=== PATIENT | female | born 1965 | race Caucasian/White ===

== ENCOUNTER → 2022-11-13 08:47 | Outpatient (BNVA) | payer BC, SELFPAY | PROVIDERS: PCP Family Medicine; Visit Provider Student in an Organized Health Care Education/Training Program | DX: Z13.89 Encounter for screening for other disorder (principal) ==

== ENCOUNTER 2022-11-13 09:48 | Outpatient (REF) | payer BC, SELFPAY ==
[2022-11-13 10:35] LABS: MANUAL DIFF FLAG NO
[2022-11-13 10:40] LABS: Basophils Absolute Auto 0.1 X10*3/uL (0.0-0.2); Eosinophils Absolute Auto 0.6 X10*3/uL (0.0-0.4); Eosinophils Percent Auto 11.2 % (0-4); Hematocrit 40.9 % (37.0-47.0); Hemoglobin 13.9 g/dl (12.0-16.0); Imm Gran Abs Auto 0.02 X10*3/uL (0.00-0.03); Imm Gran Pct Auto 0.4 % (0.0-0.4); Lymphocytes Absolute Auto 1.1 X10*3/uL (1.2-4.9); Mean Corpuscular Hemoglobin 31.2 pg (27.0-33.0); Mean Corpuscular Volume 91.7 fL (80.0-98.0); Mean Platelet Volume 8.4 fL (9.4-12.3); Monocytes Absolute Auto 0.3 X10*3/uL (0.1-1.2); Monocytes Percent Auto 5.9 % (2-11); Neutrophils Percent Auto 59.5 % (45-73); Platelet Count 256 X10*3/uL (160-400); Red Blood Count 4.46 X10*6/uL (4.20-5.50); Red Cell Distribution Width 13.5 % (11.0-16.0); White Blood Count 5.1 X10*3/uL (4.8-10.8)
[2022-11-13 11:30] LABS: Alanine Aminotransferase 25 U/L (0-31); Albumin Level 4.2 g/dL (3.5-5.0); Alkaline Phosphatase 62 U/L (39-117); Anion Gap 12 (12-20); Aspartate Amino Transferase 19 U/L (5-31); Bilirubin Total 0.8 mg/dL (0.0-1.0); Blood Urea Nitrogen 13 mg/dL (9-16); C Reactive Protein 0.49 mg/dL (< or = 0.50); Calcium 9.2 mg/dL (8.4-10.2); Carbon Dioxide 27 mmol/L (22-29); Chloride 105 mmol/L (96-108); Estimated Glomerular Filt Rate > 60; Glucose Random 99 mg/dL (60-115); Potassium 4.1 mmol/L (3.3-5.1); Rheumatoid Factor 15.1 IU/mL (<15.0); Sodium 140 mmol/L (135-145); Total Protein 7.6 g/dL (6.5-8.0)
[2022-11-13 11:40] LABS: HBS Num1 0.22 mIU/mL (0-7.99); HBc Num1 0.13 S/CO (0.00-0.79); HBsAGNum1 0.36 S/CO (0.00-0.99); Hepatitis A Antibody IgM 0.24 Index (0-0.79); Hepatitis B Core Antibody Nonreactive (Nonreactive); Hepatitis B Surface Antigen Negative (Negative); ~HepC Num1 0.28 S/CO (0.00-0.79); ~Hepatitis A Antibody IgM Nonreactive (Nonreactive); ~Hepatitis B Surface Antibody NONREACTIVE (Nonreactive); ~Hepatitis C Antibody Nonreactive (Nonreactive)
[2022-11-15 11:09] LABS: Cyclic Citrullinated Peptide 155 UNITS
== END 2022-11-13 09:49 | disposition home or self-care (01) ==
LOC: HO.10HDL 09:48
PROVIDERS: Visit Provider Student in an Organized Health Care Education/Training Program
DX: M06.9 Rheumatoid arthritis, unspecified (principal); Z11.59 Encounter for screening for other viral diseases; Z11.7 Encounter for testing for latent tuberculosis infection
CPT/HCPCS: 36415; 80053; 85025; 86140; 86200; 86431; 86704; 86706; 86709; 86803; 87340

== ENCOUNTER 2023-06-11 10:11 | Outpatient (AMB) | payer BC, SELFPAY ==
[2023-06-11 10:16] VITALS: BP 140/82; PULSE 62; TEMP 36.7; O2SAT 98; BMI 47.7
--- NOTE | 2023-06-11 10:16 | MHC.OFFVIS ---
Intake Vital Signs 06/11/23 10:16 Height 5 ft Weight 244 lb 4.355 oz BMI 47.7 BP 140/82 H Blood Pressure Location Rt brachial Position Sitting Pulse 62 Pulse Source Pulse Oximeter Temp 98.1 F Temp Source Skin Pulse Oximetry (%) 98 Intake Visit Reasons: RA Intake Note: Pt seen today for RA follow up. Road Design Draftsperson Required: No Accompanied by: Self / Same As Patient Allergies Seasonal Allergies Allergy (Verified 06/11/23 10:17) Itchy Eyes Medication List - Last Reconciled 06/11/23 by Roberto Bojorquez MD adalimumab (Humira) 40 mg (0.8 mL) subcut Q2W ferrous sulfate 325 mg PO DAILY hydrochlorothiazide 12.5 mg PO DAILY lactobacillus combination no.9 (Adult 50 Plus Probiotic) 4,000 mmu cells PO DAILY levothyroxine 150 mcg PO DAILY HPI HPI Comments History of Present Illness Details 58-year-old female with seropositive RA returns for follow-up. On Humira every other week. States that she gets intermittent joint pain usually related to overuse, states that she gets about 3 days of joint pain in the month. She received the new COVID booster and flu vaccine 2 weeks ago. States that she gets a little short of breath with going up the stairs. States that her smoked for about 20 years until he passed a few years ago. Initial history: This is a 57-year-old female with a past medical history of rheumatoid arthritis and osteoarthritis who presents for rheumatology evaluation. Her previous syrup mixer helper left the practice. Patient stated she was diagnosed with rheumatoid arthritis around 35 years ago in her 30s and she had been on numerous DMARDs. She states that she is currently relatively well controlled on Humira. She states she gets alternating joint pain depending on the joint she overused. Today she is having some right shoulder pain after shoveling snow yesterday and falling on her right shoulder. She states that she feels joint pain and swelling coming back if she misses her Humira dose. She stated that she was diagnosed with ulcerative colitis 13 years ago and had already been on Humira. She denies any skin rash. No history suggestive of uveitis or psoriasis. 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[employer] Review of Systems Card Reports dyspnea Resp Reports dyspnea Musc Reports arthralgias Physical Exam Vital Signs: Last Vital Signs Temp 98.1 F 06/11/23 10:16 Pulse 62 06/11/23 10:16 BP 140/82 H 06/11/23 10:16 Pulse Ox 98 06/11/23 10:16 BMI result Body Mass Index 47.7 Const General: cooperative and healthy appearing Nutritional Appearance: obese morbidly obese Orientation/consciousness: patient oriented x3 Limitations: no limitations HEENT Other: Nasal tone of voice Head: Yes normocephalic and Yes atraumatic Mouth: moist mucous membranes Resp Effort & Inspection: normal respiratory effort and able to speak in complete sentences Auscultation: clear to auscultation bilaterally Cardio Rate: regular rate Rhythm: regular rhythm GI Inspection: No distended Palpation (GI): Soft to palpation and nontender Skin General skin exam: no rashes or lesions noted Neuro General: patient oriented x3 Extrem Other: Mildly hyperextensible PIPs Normal range of motion of both elbows and shoulders without pain Firm nontender nodule on the extensor surface of the right 5th MCP, likely rheumatoid nodule Normal nailfold capillaroscopy Assessment & Plan Assessment & Plan (1) Rheumatoid arthritis: Comment: +RF++CCP. Onset per patient in her 20s Per patient Had been on SSZ, MTX, anakinra for a number of years each with incomplete response On Humira for more than 13 years . Effective Code(s): M06.9 - Rheumatoid arthritis, unspecified Qualifiers: Rheumatoid arthritis location: multiple sites Rheumatoid factor presence: unspecified presence Qualified Code(s): M06.9 - Rheumatoid arthritis, unspecified Plan: This is a 58-year-old female with seropositive f rheumatoid arthritis and ulcerative colitis returns for follow-up. Her RA is well controlled on Humira every other week. Continue Humira every other week Labs before next visit in 6 months (2) Shortness of breath: Code(s): R06.02 - Shortness of breath Plan: Mild shortness of breath with going up the stairs, multifactorial, can be due to deconditioning, however given long history of seropositive RA, exposure to smoking, will order PFTs and echo to evaluate for ILD and PH (3) Immunization counseling: Code(s): Z71.85 - Encounter for immunization safety counseling Plan: Discussed ACR vaccination guidelines for adults with autoimmune rheumatic disease. Patient already received the new COVID booster and flu vaccines this season. Plan I spent 26 minutes reviewing patient's chart, evaluating patient, ordering diagnostic workup, counseling patient and documenting in the chart Orders: Orders Complete Blood Count Auto Diff 6 Months M06.9 - Rheumatoid arthritis, unspecified C Reactive Protein 6 Months M06.9 - Rheumatoid arthritis, unspecified Erythrocyte Sedimentation Rate 6 Months M06.9 - Rheumatoid arthritis, unspecified T Spot TB 6 Months Z11.7 - Encounter for testing for latent tuberculosis infection CA echo transthoracic complete Today R06.02 - Shortness of breath Comprehensive Met. Panel 6 Months M06.9 - Rheumatoid arthritis, unspecified PFT pulmonary function test Today R06.02 - Shortness of breath Coding Level of Care Code Est Pt Level 4 (12408) Diagnoses Rheumatoid arthritis involving multiple sites, unspecified whether rheumatoid factor present M06.9 Rheumatoid arthritis location: multiple sites Rheumatoid factor presence: unspecified presence Shortness of breath R06.02 Immunization counseling Z71.09
== END 2023-06-11 10:36 | disposition home or self-care (01) ==
PROVIDERS: PCP Family Medicine; Visit Provider Student in an Organized Health Care Education/Training Program
DX: M06.9 Rheumatoid arthritis, unspecified (principal); R06.02 Shortness of breath; Z71.85 Encounter for immunization safety counseling
CPT/HCPCS: 99214

== ENCOUNTER → 2023-06-11 10:11 | Outpatient (BNVA) | payer BC, SELFPAY | PROVIDERS: PCP Family Medicine; Visit Provider Student in an Organized Health Care Education/Training Program ==

== ENCOUNTER → 2023-07-29 12:46 | Outpatient (REF) | payer BC, SELFPAY ==
--- NOTE | 2023-07-29 12:49 | CA_ITS ---
Transthoracic Echocardiogram Patient (Last, First, Middle): Ashlyn Armstrong A Gender: Female Date of : 1965 Age: 58 Procedure Date: 07/29/2023 Procedure Type: Transthoracic Echocardiogram Location: OP Height: 149.86 cm Weight: 109.32 kg BSA: 2.00 m2 Heart Rate: bpm BP: 128 / 76 mmHg Hazard Waste Handler: TO Referring MD: Roberto Bojorquez MD Maintenance Mechanic Engine: Paulino Bonilla MD Symptoms: R06.02 - Shortness of breath Study Quality: Technically Difficult ECG Rhythm: Sinus Conclusions: - 1. Technically somewhat limited study, patient declined contrast Agent 2. LV ejection fraction is within normal limits with LVEF of 60 65% with impaired relaxation filling pattern 3. Early mild aortic stenosis 4. Normal measured RV systolic pressure 5. No gross pericardial effusion Findings Left Ventricle Normal left ventricular size, thickness, and systolic function. The visually estimated ejection fraction is between 60-65%. Regional wall motion abnormalities can not be excluded due to suboptimal endocardial definition. Spectral Doppler is indicative of an impaired relaxation filling pattern. E/E prime ratio is between 8 and 15 consistent with indeterminate filling pressures. Right Ventricle Normal right ventricular cavity size. Atria The left atrium is normal in size. Interatrial shunt cannot be excluded. The right atrium was not well visualized. Aortic Valve The aortic valve was not well visualized. There is mild aortic valve stenosis. The peak aortic gradient is 12 mmHg.The mean gradient is 6 mmHg. The aortic valve area is 1.70 cm2. There is no aortic valve regurgitation. Mitral Valve There is mild anterior mitral leaflet thickening. There is moderate mitral annular calcification. There is trace mitral valve regurgitation. There is no mitral valve stenosis. Pulmonic Valve The pulmonic valve was not well visualized. Tricuspid Valve Likely normal tricuspid valve structure and function. There is trace tricuspid valve regurgitation. The right ventricular systolic pressure is normal. The right ventricular systolic pressure is 15 mmHg. Normal right atrial pressure. There is no evidence of pulmonary hypertension. Great Vessels The pulmonary artery was not well visualized. There is no dilatation of the ascending aorta. Venous The inferior vena cava is normal in size and collapses greater than 50% with inspiration. Pericardium/Pleural There is no evidence of pericardial effusion. Prior Study Comparison No prior study available for comparison. Measurements 2D Linear Measurements IVSd: 0.98 0.6-0.9/0.6-1.0 cm LVIDd: 4.71 3.9-5.3/4.2-5.9 cm LVIDd Index: 2.36 2.4-3.2/2.2-3.1 cm/m2 LVIDs: 3.10 2.0-3.6 cm LVPWd: 0.87 0.7-1.1 cm LA Diam: 4.20 2.7-3.8/3.0-4.0 cm LAIDs Index: 2.10 1.5-2.3 cm/m2 LV Mass: 183.72 67-162/88-224 g LV Mass Index: 91.86 43-95/49-115 g/m2 LVOT Diam: 1.90 3.0+(-)1.3 cm 2D Systolic Function EF 4C: 67.40 >55% EF 2C: 61.30 >55% EF BiP: 64.60 >55% Mitral Valve MV VTI: 0.32 MV Pk Trent: 1.16 MV Mn Trent: 0.61 MV Pk Grad: 5.00 MV Mn Grad: 2.00 MV Pk E: 0.78 MV PK A: 1.09 MV Decel Time: 254.00 E/A: 0.70 E'Lateral: 8.05 E'Medial: 5.55 E/E' Med: 14.10 E/E' Lat: 9.70 PHT: 74.00 MVA PHT: 2.97 MVA Continuity: 1.88 Decel [place]: 3.08 Aortic Valve AoV Pk Trent: 1.76 AoV Mn Trent: 1.17 AoV VTI: 0.35 AoV Pk Grad: 12.00 Aov Mn Grad: 6.00 ISABELA Cont.VTI: 1.70 LVOT LVOT Pk Trent: 0.98 LVOT Mn Trent: 0.59 LVOT VTI: 0.21 LVOT Pk Grad: 4.00 LVOT Mn Grad: 2.00 LVOT Diam: 1.90 LVOT Area: 2.84 Diastolic Function MV Pk E: 0.78 MV Pk A: 1.09 E/A: 0.70 E'Medial: 5.55 E/E' Med: 14.10 E' Laterial: 8.05 E/E' Lat: 9.70 Right Ventricle TAPSE (mm): 26.20 TVS' Trent: 12.60 Tricuspid Valve TR Pk Trent: 1.71 TR Pk Grad: 12.00 RA Press: 3.00 RVSP: 15.00 Great Vessels Aorta Sinus of Valsalva: 3.26 2.0-3.5 cm Ao Asc: 3.20 2.1-3.4 cm Updated in Other Vendor System with Status of Final Paulino Bonilla MD electronically signed on 07/29/2023 6:57:28 PM with status of Final
--- NOTE | 2023-07-29 15:10 | PFT_ITS ---
Indication: Dyspnea Spirometry [FEV1 to FVC 82%; FEV1 2.31 L which is 107% predicted; FVC 2.83 L which is 103% predicted. No significant response to bronchodilators noted. Maximum blood ventilation 48% predicted] Lung Volumes [Total lung capacity 87% predicted] Diffusion Capacity [DLCO 60% predicted] Comparison None Interpretation [No obstructive nor restrictive ventilatory defects identified. No significant response to bronchodilators noted. Moderate decrease in the maximum voluntary ventilation secondary to deconditioning although cannot rule out neuromuscular conditions. There is a isolated mild diffusion impairment. Should correction for hemoglobin. Clinical correlation warranted.] MTDD
== END ==
LOC: HO.CARD 12:46
PROVIDERS: PCP Family Medicine; Visit Provider Student in an Organized Health Care Education/Training Program
DX: R06.02 Shortness of breath (principal)
CPT/HCPCS: 93306; 94010; 94727; 94729

== ENCOUNTER → 2023-07-29 12:49 | Outpatient (BNV) | payer BC, SELFPAY | PROVIDERS: PCP Family Medicine; Visit Provider Internal Medicine Cardiovascular Disease | DX: I35.0 Nonrheumatic aortic (valve) stenosis (principal) | CPT/HCPCS: 93306 ==

== ENCOUNTER 2023-12-05 14:52 | Outpatient (REF) | payer BC, SELFPAY ==
[2023-12-05 15:13] LABS: MANUAL DIFF FLAG NO
[2023-12-05 15:44] LABS: Basophils Percent Auto 0.6 % (0-2); Eosinophils Absolute Auto 0.3 X10*3/uL (0.0-0.4); Eosinophils Percent Auto 5.5 % (0-4); Hematocrit 41.8 % (37.0-47.0); Hemoglobin 14.1 g/dl (12.0-16.0); Imm Gran Abs Auto 0.02 X10*3/uL (0.00-0.03); Imm Gran Pct Auto 0.3 % (0.0-0.4); Lymphocytes Absolute Auto 1.1 X10*3/uL (1.2-4.9); Mean Corpuscular HGB Conc 33.7 g/dl (31.0-35.0); Mean Corpuscular Hemoglobin 31.3 pg (27.0-33.0); Mean Corpuscular Volume 92.7 fL (80.0-98.0); Mean Platelet Volume 8.6 fL (9.4-12.3); Monocytes Absolute Auto 0.3 X10*3/uL (0.1-1.2); Neutrophils Absolute Auto 4.4 x10*3/uL (2.0-8.3); Neutrophils Percent Auto 70.6 % (45-73); Platelet Count 273 X10*3/uL (160-400); Red Blood Count 4.51 X10*6/uL (4.20-5.50); Red Cell Distribution Width 13.3 % (11.0-16.0); White Blood Count 6.2 X10*3/uL (4.8-10.8)
[2023-12-05 16:31] LABS: Alanine Aminotransferase 15 U/L (0-31); Albumin Level 4.3 g/dL (3.5-5.0); Alkaline Phosphatase 62 U/L (39-117); Anion Gap 12 (12-20); Aspartate Amino Transferase 13 U/L (5-31); Bilirubin Total 0.6 mg/dL (0.0-1.0); Blood Urea Nitrogen 16 mg/dL (9-16); C Reactive Protein 0.53 mg/dL (< or = 0.50); Calcium 9.8 mg/dL (8.4-10.2); Carbon Dioxide 29 mmol/L (22-29); Chloride 105 mmol/L (96-108); Estimated Glomerular Filt Rate > 60; Glucose Random 103 mg/dL (60-115); Potassium 4.1 mmol/L (3.3-5.1); Sodium 142 mmol/L (135-145); Total Protein 8.2 g/dL (6.5-8.0)
[2023-12-05 16:39] LABS: Erythrocyte Sedimentation Rate 23 MM/HR (0-20)
[2023-12-07 21:23] LABS: TS Negative Control Passed; TS Panel A 0; TS Panel B 5; TS Positive Control Passed; TSpotTB Borderline (Negative)
== END 2023-12-05 14:53 | disposition home or self-care (01) ==
LOC: HO.LAB 14:52
PROVIDERS: PCP Family Medicine; Visit Provider Student in an Organized Health Care Education/Training Program
DX: Z11.7 Encounter for testing for latent tuberculosis infection (principal); M06.9 Rheumatoid arthritis, unspecified
CPT/HCPCS: 36415; 80053; 85025; 85652; 86140; 86481

== ENCOUNTER 2023-12-11 10:03 | Outpatient (AMB) | payer BC, SELFPAY ==
--- NOTE | 2023-12-11 10:07 | MHC.OFFVIS ---
Intake Vital Signs 12/11/23 10:08 Height 5 ft Weight 237 lb 7.005 oz BMI 46.4 BP 126/68 Blood Pressure Location Rt brachial Position Sitting Pulse 71 Pulse Source Pulse Oximeter Pulse Oximetry (%) 97 Oxygen Delivery Method Room Air Intake Visit Reasons: RA Intake Note: Patient last seen 06/11/23 presents today for follow up and test results. Safety Scientist Required: No Accompanied by: Self / Same As Patient Allergies Seasonal Allergies Allergy (Verified 12/11/23 10:10) Itchy Eyes Medication List - Last Reconciled 12/11/23 by Roberto Bojorquez MD adalimumab-adaz (Hyrimoz(CF) Pen) 40 mg (0.4 mL) subcut Q14D ferrous sulfate 325 mg PO DAILY Humira (adalimumab) 40 mg (0.8 mL) subcut Q2W NS hydrochlorothiazide 12.5 mg PO DAILY lactobacillus combination no.9 (Adult 50 Plus Probiotic) 4,000 mmu cells PO DAILY levothyroxine 150 mcg PO DAILY HPI HPI Comments History of Present Illness Details 58-year-old female with seropositive RA returns for follow-up. On Humira every other week. States that she has enough to last her until the end of this month and will start the Humira bio similar next month. She states that she feels about the same. With intermittent joint pains here and there but nothing significant. Denies any swollen joints. Denies any shortness of breath. Initial history: This is a 57-year-old female with a past medical history of rheumatoid arthritis and osteoarthritis who presents for rheumatology evaluation. Her previous director marketing left the practice. Patient stated she was diagnosed with rheumatoid arthritis around 35 years ago in her 30s and she had been on numerous DMARDs. She states that she is currently relatively well controlled on Humira. She states she gets alternating joint pain depending on the joint she overused. Today she is having some right shoulder pain after shoveling snow yesterday and falling on her right shoulder. She states that she feels joint pain and swelling coming back if she misses her Humira dose. She stated that she was diagnosed with ulcerative colitis 13 years ago and had already been on Humira. She denies any skin rash. No history suggestive of uveitis or psoriasis. 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[employer] Review of Systems Card Denies dyspnea Resp Denies dyspnea Musc Reports arthralgias and Denies joint swelling Physical Exam Vital Signs: Last Vital Signs Pulse 71 12/11/23 10:08 BP 126/68 12/11/23 10:08 Pulse Ox 97 12/11/23 10:08 Oxygen Delivery Method Room Air 12/11/23 10:08 BMI result Body Mass Index 46.4 Const General: cooperative and healthy appearing Nutritional Appearance: obese morbidly obese Orientation/consciousness: patient oriented x3 Limitations: no limitations HEENT Other: Nasal tone of voice Head: Yes normocephalic and Yes atraumatic Mouth: moist mucous membranes Resp Effort & Inspection: normal respiratory effort and able to speak in complete sentences Auscultation: clear to auscultation bilaterally Cardio Rate: regular rate Rhythm: regular rhythm GI Inspection: No distended Palpation (GI): Soft to palpation and nontender Skin General skin exam: no rashes or lesions noted Neuro General: patient oriented x3 Extrem Other: Mildly hyperextensible PIPs Normal range of motion of both elbows and shoulders without pain Firm nontender nodule on the extensor surface of the right 5th MCP, likely rheumatoid nodule Normal nailfold capillaroscopy Results Reviewed Results Reviewed: Labs 06/21? TSH 1.36? Iron 53 (30-160) Iron binding capacity 327 (228-428) Transferrin saturation 16 (15-50%) CBC unremarkable BMP unremarkable Assessment & Plan Assessment & Plan (1) Rheumatoid arthritis: Comment: +RF++CCP. Onset per patient in her 20s Per patient Had been on SSZ, MTX, anakinra for a number of years each with incomplete response On Humira for more than 13 years . Effective Code(s): M06.9 - Rheumatoid arthritis, unspecified Qualifiers: Rheumatoid arthritis location: multiple sites Rheumatoid factor presence: unspecified presence Qualified Code(s): M06.9 - Rheumatoid arthritis, unspecified Plan: This is a 58-year-old female with seropositive rheumatoid arthritis and ulcerative colitis returns for follow-up. Her RA is well controlled on Humira every other week. She will start the Humira bio similar next month Continue adalimumab 40 mg every other week 2D echo was ordered to evaluate for pulmonary hypertension, was negative. PFTs showed mildly reduced DLCO at 60%. 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 Patient does not recall any recent travel or exposure to TB. Will repeat T spot Plan I spent 26 minutes reviewing patient's chart, evaluating patient, ordering diagnostic workup, counseling patient and documenting in the chart Orders: Orders T Spot TB Today Z11.7 - Encounter for testing for latent tuberculosis infection Complete Blood Count Auto Diff 6 Months M06.9 - Rheumatoid arthritis, unspecified Erythrocyte Sedimentation Rate 6 Months M06.9 - Rheumatoid arthritis, unspecified Comprehensive Met. 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
[2023-12-11 10:08] VITALS: BP 126/68; PULSE 71; O2SAT 97; BMI 46.4
== END 2023-12-11 10:25 | disposition home or self-care (01) ==
PROVIDERS: PCP Family Medicine; Visit Provider Student in an Organized Health Care Education/Training Program
DX: M06.9 Rheumatoid arthritis, unspecified (principal); R76.12 Nonspecific reaction to cell mediated immunity measurement of gamma interferon antigen response without active tuberculosis
CPT/HCPCS: 99214

== ENCOUNTER 2023-12-11 10:03 | Outpatient (REF) | payer BC, SELFPAY ==
[2023-12-13 21:43] LABS: TS Negative Control Passed; TS Panel A 1; TS Panel B 0; TS Positive Control Passed; TSpotTB Negative (Negative)
== END 2023-12-11 10:04 | disposition home or self-care (01) ==
LOC: HO.LAB 10:03
PROVIDERS: PCP Family Medicine; Visit Provider Student in an Organized Health Care Education/Training Program
DX: M06.9 Rheumatoid arthritis, unspecified (principal); R76.12 Nonspecific reaction to cell mediated immunity measurement of gamma interferon antigen response without active tuberculosis; Z11.7 Encounter for testing for latent tuberculosis infection; Z79.899 Other long term (current) drug therapy
CPT/HCPCS: 36415; 86481

== ENCOUNTER 2024-06-12 09:40 | Outpatient (REF) | payer BC, SELFPAY ==
[2024-06-12 09:54] LABS: MANUAL DIFF FLAG NO
[2024-06-12 10:15] LABS: Basophils Absolute Auto 0.1 X10*3/uL (0.0-0.2); Basophils Percent Auto 1.1 % (0-2); Eosinophils Absolute Auto 0.4 X10*3/uL (0.0-0.4); Eosinophils Percent Auto 6.3 % (0-4); Hematocrit 37.5 % (37.0-47.0); Hemoglobin 13.1 g/dl (12.0-16.0); Imm Gran Abs Auto 0.02 X10*3/uL (0.00-0.03); Imm Gran Pct Auto 0.3 % (0.0-0.4); Lymphocytes Absolute Auto 1.1 X10*3/uL (1.2-4.9); Lymphocytes Percent Auto 17.4 % (20-40); Mean Corpuscular HGB Conc 34.9 g/dl (31.0-35.0); Mean Corpuscular Hemoglobin 31.9 pg (27.0-33.0); Mean Corpuscular Volume 91.2 fL (80.0-98.0); Mean Platelet Volume 8.3 fL (9.4-12.3); Monocytes Absolute Auto 0.4 X10*3/uL (0.1-1.2); Monocytes Percent Auto 6.3 % (2-11); Neutrophils Absolute Auto 4.2 x10*3/uL (2.0-8.3); Neutrophils Percent Auto 68.6 % (45-73); Platelet Count 270 X10*3/uL (160-400); Red Blood Count 4.11 X10*6/uL (4.20-5.50); Red Cell Distribution Width 13.3 % (11.0-16.0); White Blood Count 6.2 X10*3/uL (4.8-10.8)
[2024-06-12 10:50] LABS: Alanine Aminotransferase 14 U/L (0-31); Albumin Level 4.2 g/dL (3.5-5.0); Alkaline Phosphatase 58 U/L (39-117); Anion Gap 13 (12-20); Aspartate Amino Transferase 13 U/L (5-31); Bilirubin Total 0.6 mg/dL (0.0-1.0); Blood Urea Nitrogen 18 mg/dL (9-16); Calcium 9.8 mg/dL (8.4-10.2); Carbon Dioxide 27 mmol/L (22-29); Chloride 104 mmol/L (96-108); Estimated Glomerular Filt Rate > 60; Glucose Random 110 mg/dL (60-115); Potassium 4.1 mmol/L (3.3-5.1); Sodium 140 mmol/L (135-145); Total Protein 7.6 g/dL (6.5-8.0)
[2024-06-12 11:03] LABS: Erythrocyte Sedimentation Rate 20 MM/HR (0-20)
== END 2024-06-12 09:41 | disposition home or self-care (01) ==
LOC: HO.LAB 09:40
PROVIDERS: PCP Family Medicine; Visit Provider Student in an Organized Health Care Education/Training Program
DX: M06.9 Rheumatoid arthritis, unspecified (principal)
CPT/HCPCS: 36415; 80053; 85025; 85652; 86140

== ENCOUNTER 2024-06-15 09:22 | Outpatient (AMB) | payer BC, SELFPAY ==
--- NOTE | 2024-06-15 09:30 | MHC.OFFVIS ---
Vital Signs 06/15/24 09:34 Height 5 ft Weight 227 lb 8.273 oz BMI 44.4 BP 120/70 Blood Pressure Location Lt brachial Position Sitting Pulse 60 Pulse Source Pulse Oximeter Pulse Oximetry (%) 99 Oxygen Delivery Method Room Air Intake Visit Reasons: RA Intake Note: Patient presents for RA. Allergies Seasonal Allergies Allergy (Verified 06/15/24 09:33) Itchy Eyes Medication List - Last Reconciled 06/15/24 by Roberto Bojorquez MD ferrous sulfate 325 mg PO DAILY hydrochlorothiazide 12.5 mg PO DAILY Hyrimoz(CF) Pen (adalimumab-adaz) 40 mg (0.4 mL) subcut Q2W NS lactobacillus combination no.9 (Adult 50 Plus Probiotic) 4,000 mmu cells PO DAILY levothyroxine 150 mcg PO DAILY HPI Comments Details: 59-year-old female with seropositive RA returns for follow-up. On Hyrimoz 40 every other week. S she states that she is doing well overall today. She states that the adalimumab bio similar is as effective as the Humira. She states that she gets intermittent joint pains. She has about 5 bad days a month. She would have 1 or 2 painful joints. Has not had any recent illnesses. Initial history: This is a 57-year-old female with a past medical history of rheumatoid arthritis and osteoarthritis who presents for rheumatology evaluation. Her previous inter com servicer left the practice. Patient stated she was diagnosed with rheumatoid arthritis around 35 years ago in her 30s and she had been on numerous DMARDs. She states that she is currently relatively well controlled on Humira. She states she gets alternating joint pain depending on the joint she overused. Today she is having some right shoulder pain after shoveling snow yesterday and falling on her right shoulder. She states that she feels joint pain and swelling coming back if she misses her Humira dose. She stated that she was diagnosed with ulcerative colitis 13 years ago and had already been on Humira. She denies any skin rash. No history suggestive of uveitis or psoriasis. [facility] Medical History (Updated 06/15/24 @ 10:11 by Roberto Bojorquez MD) PRESTON on CPAP Obesity Rheumatoid arthritis Acquired hypothyroidism Ulcerative colitis Iron deficiency anemia Surgical History Hx of colonoscopy Hx of mammogram Family History Mother Arthritis Sister Breast cancer, Onset Age: 40 Paternal Aunt Breast cancer, Onset Age: 60 Rheumatoid arthritis Maternal Grandmother Leukemia Social History Household Members: None Alcohol intake: current Alcohol intake frequency: a few times a week Patient Tobacco Use Status: Never used Tobacco Current occupational status: employed 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[employer] Review of Systems Card Denies dyspnea Resp Denies dyspnea Musc Denies arthralgias and Denies joint swelling Physical Exam Vital Signs: Last Vital Signs Pulse 60 06/15/24 09:34 BP 120/70 06/15/24 09:34 Pulse Ox 99 06/15/24 09:34 Oxygen Delivery Method Room Air 06/15/24 09:34 BMI result Body Mass Index 44.4 Const General: cooperative and healthy appearing Nutritional Appearance: obese morbidly obese Orientation/consciousness: patient oriented x3 Limitations: no limitations HEENT Head: Yes normocephalic and Yes atraumatic Mouth: moist mucous membranes Resp Effort & Inspection: normal respiratory effort and able to speak in complete sentences Auscultation: clear to auscultation bilaterally Cardio Rate: regular rate Rhythm: regular rhythm GI Inspection: No distended Palpation (GI): Soft to palpation and nontender Skin General skin exam: no rashes or lesions noted Neuro General: patient oriented x3 Extrem Other: Mildly hyperextensible PIPs Normal range of motion of both elbows and shoulders without pain Firm nontender nodule on the extensor surface of the right 5th MCP, likely rheumatoid nodule Normal nailfold capillaroscopy Assessment & Plan Assessment & Plan (1) Rheumatoid arthritis: Comment: +RF++CCP. Onset per patient in her 20s Per patient Had been on SSZ, MTX, anakinra for a number of years each with incomplete response On Humira for more than 13 years . Effective. Switched to Hyrimoz 12/2023 effective as well Code(s): M06.9 - Rheumatoid arthritis, unspecified Category: Medical Qualifiers: Rheumatoid arthritis location: multiple sites Rheumatoid factor presence: unspecified presence Qualified Code(s): M06.9 - Rheumatoid arthritis, unspecified Plan: This is a 59-year-old female with seropositive rheumatoid arthritis and ulcerative colitis returns for follow-up. Her RA is well controlled on Hyrimoz 40 mg every other week. Inflammatory markers are normal Continue Hyrimoz 40 mg every other week 2D echo was ordered to evaluate for pulmonary hypertension, was negative. PFTs showed mildly reduced DLCO at 60%. With normal TLC Plan to repeat 2D echo and PFTs in 1-2 years Labs before next visit in 6 months (2) High risk medication use: Code(s): Z79.899 - Other extermination inspector (current) drug therapy Category: Medical Plan: Side effects of adalimumab were discussed with the patient in detail including increased risk of infection, demyelinating disease, reactivation of latent TB, possible increased risk of solid and skin tumors. Patient fully aware. Advised patient to seek medical care [facility] if patient has an infection and advised patient to stop the medication until the infection is resolved. (3) Immunization counseling: Code(s): Z71.85 - Encounter for immunization safety counseling Category: Medical Plan: Patient received flu vaccine and COVID booster already. Advised patient to try to get RSV vaccine Plan I spent 26 minutes reviewing patient's chart, evaluating patient, ordering diagnostic workup, counseling patient and documenting in the chart Orders: Orders C Reactive Protein 6 Months M06.9 - Rheumatoid arthritis, unspecified, Z79.899 - Other [place] [facility] (current[facility] drug therapy Erythrocyte Sedimentation Rate 6 Months M06.9 - Rheumatoid arthritis, unspecified, Z79.899 - Other [place] [facility] (current) drug therapy Complete Blood Count Auto Diff 6 Months M06.9 - Rheumatoid arthritis, unspecified, Z79.899 - Other [place] [facility] (current) drug therapy Comprehensive Met. Panel 6 Months M06.9 - Rheumatoid arthritis, unspecified, Z79.899 - Other [place] [facility] (current) drug therapy Coding Level of Care Code Est Pt Level 4 (26321) Complex EM visit Add On G2211 Diagnoses Rheumatoid arthritis involving multiple sites, unspecified whether rheumatoid factor present M06.9 Rheumatoid arthritis location: multiple sites Rheumatoid factor presence: unspecified presence High risk medication use Z79.899 Immunization counseling Z71.85
[2024-06-15 09:34] VITALS: BP 120/70; PULSE 60; O2SAT 99; BMI 44.4
== END 2024-06-15 10:09 | disposition home or self-care (01) ==
PROVIDERS: PCP Family Medicine; Visit Provider Student in an Organized Health Care Education/Training Program
DX: M06.9 Rheumatoid arthritis, unspecified (principal); Z79.899 Other long term (current) drug therapy; Z71.85 Encounter for immunization safety counseling
CPT/HCPCS: 99214

== ENCOUNTER → 2024-06-15 09:22 | Outpatient (BNVA) | payer BC, SELFPAY | PROVIDERS: PCP Family Medicine; Visit Provider Student in an Organized Health Care Education/Training Program ==

== ENCOUNTER 2024-10-13 08:59 | Outpatient (REF) | payer BC, SELFPAY ==
[2024-10-13 10:33] LABS: MANUAL DIFF FLAG NO
[2024-10-13 12:09] LABS: Basophils Absolute Auto 0.1 X10*3/uL (0.0-0.2); Basophils Percent Auto 1.1 % (0-2); Eosinophils Absolute Auto 0.5 X10*3/uL (0.0-0.4); Eosinophils Percent Auto 8.2 % (0-4); Hematocrit 38.9 % (37.0-47.0); Hemoglobin 13.4 g/dl (12.0-16.0); Imm Gran Abs Auto 0.02 X10*3/uL (0.00-0.03); Imm Gran Pct Auto 0.4 % (0.0-0.4); Lymphocytes Percent Auto 18.6 % (20-40); Mean Corpuscular HGB Conc 34.4 g/dl (31.0-35.0); Mean Corpuscular Hemoglobin 31.5 pg (27.0-33.0); Mean Corpuscular Volume 91.5 fL (80.0-98.0); Mean Platelet Volume 8.9 fL (9.4-12.3); Monocytes Absolute Auto 0.4 X10*3/uL (0.1-1.2); Monocytes Percent Auto 6.6 % (2-11); Neutrophils Absolute Auto 3.6 x10*3/uL (2.0-8.3); Neutrophils Percent Auto 65.1 % (45-73); Platelet Count 284 X10*3/uL (160-400); Red Blood Count 4.25 X10*6/uL (4.20-5.50); Red Cell Distribution Width 13.6 % (11.0-16.0); White Blood Count 5.5 X10*3/uL (4.8-10.8)
[2024-10-13 12:34] LABS: Alanine Aminotransferase 16 U/L (0-31); Albumin Level 4.2 g/dL (3.5-5.0); Alkaline Phosphatase 59 U/L (39-117); Anion Gap 11 (12-20); Aspartate Amino Transferase 16 U/L (5-31); Bilirubin Total 0.7 mg/dL (0.0-1.0); Blood Urea Nitrogen 17 mg/dL (9-16); C Reactive Protein 6.71 mg/dL (< or = 0.50); Calcium 9.4 mg/dL (8.4-10.2); Carbon Dioxide 27 mmol/L (22-29); Chloride 106 mmol/L (96-108); Estimated Glomerular Filt Rate > 60; Glucose Random 104 mg/dL (60-115); Potassium 3.9 mmol/L (3.3-5.1); Sodium 140 mmol/L (135-145); Total Protein 8.3 g/dL (6.5-8.0)
[2024-10-13 12:43] LABS: HBS Num1 1.98 mIU/mL (0-7.99); HBc Num1 0.12 S/CO (0.00-0.79); HBsAGNum1 0.38 S/CO (0.00-0.99); Hepatitis A Antibody IgM 0.28 Index (0-0.79); Hepatitis B Core Antibody Nonreactive (Nonreactive); Hepatitis B Surface Antigen Negative (Negative); ~HepC Num1 0.17 S/CO (0.00-0.79); ~Hepatitis A Antibody IgM Nonreactive (Nonreactive); ~Hepatitis B Surface Antibody NONREACTIVE (Nonreactive); ~Hepatitis C Antibody Nonreactive (Nonreactive)
[2024-10-13 12:48] LABS: Erythrocyte Sedimentation Rate 38 MM/HR (0-20)
[2024-10-16 13:18] LABS: TS Negative Control Passed; TS Panel A 0; TS Panel B 0; TS Positive Control Passed; TSpotTB Negative (Negative)
== END 2024-10-13 09:00 | disposition home or self-care (01) ==
LOC: HO.LAB 08:59
PROVIDERS: PCP Family Medicine; Visit Provider Student in an Organized Health Care Education/Training Program
DX: M06.9 Rheumatoid arthritis, unspecified (principal); Z51.81 Encounter for therapeutic drug level monitoring; Z79.620 Long term (current) use of immunosuppressive biologic
CPT/HCPCS: 36415; 80053; 85025; 85652; 86140; 86481; 86704; 86706; 86709; 86803; 87340

== ENCOUNTER 2024-10-13 08:59 | Outpatient (AMB) | payer BC, SELFPAY ==
--- NOTE | 2024-10-13 09:09 | MHC.OFFVIS ---
Vital Signs 10/13/24 09:13 Height 5 ft Weight 224 lb 3.362 oz BMI 43.8 BP 120/70 Blood Pressure Location Rt brachial Position Sitting Pulse 62 Pulse Source Pulse Oximeter Pulse Oximetry (%) 98 Oxygen Delivery Method Room Air Intake Visit Reasons: RA Intake Note: Patient presents for RA. Allergies Seasonal Allergies Allergy (Verified 10/13/24 09:12) Itchy Eyes Medication List - Last Reconciled 10/13/24 by Autumn Hartley MD ferrous sulfate 325 mg PO DAILY hydrochlorothiazide 12.5 mg PO DAILY Hyrimoz(CF) Pen (adalimumab-adaz) 40 mg (0.4 mL) subcut Q2W NS lactobacillus combination no.9 (Adult 50 Plus Probiotic) 4,000 mmu cells PO DAILY levothyroxine 150 mcg PO DAILY HPI Comments Details: Patient is a 59-year-old female with ulcerative colitis, seropositive nodular rheumatoid arthritis and hypothyroidism here today for follow up Interval History: Last seen 06/15/[address] Bojorquez. At that time she reported that she was doing overall well. On average she would have about 5 by days a month and during that time she will have 1 or 2 painful joints otherwise she felt the bio similar was doing just as good as the Humira. Today, States that she feels pretty much the same Still having these episodes where she has joint pain and flares These flares seem to occur close to when her Humira is due Especially repetitive motion with the joint Rheumatologic History: +RF++CCP. Onset per patient in her 20s Per patient Had been on SSZ, MTX, anakinra for a number of years each with incomplete response On Humira for more than 13 years . Effective. Switched to Hyrimoz 12/2023 effective as well Initial history: This is a 57-year-old female with a past medical history of rheumatoid arthritis and osteoarthritis who presents for rheumatology evaluation. Her previous desolderer left the practice. Patient stated she was diagnosed with rheumatoid arthritis around 35 years ago in her 30s and she had been on numerous DMARDs. She states that she is currently relatively well controlled on Humira. She states she gets alternating joint pain depending on the joint she overused. Today she is having some right shoulder pain after shoveling snow yesterday and falling on her right shoulder. She states that she feels joint pain and swelling coming back if she misses her Humira dose. She stated that she was diagnosed with ulcerative colitis 13 years ago and had already been on Humira. She denies any skin rash. No history suggestive of uveitis or psoriasis. Current Rheumatology Medication(s): Adalimumab-adaz 40mg SC every 2 weeks [facility] Medical History (Updated 10/13/24 @ 09:41 by Autumn Hartley MD) Encounter for monitoring of adalimumab therapy PRESTON on CPAP Obesity Rheumatoid arthritis Acquired hypothyroidism Ulcerative colitis Iron deficiency anemia Surgical History Hx of colonoscopy Hx of mammogram Family History Mother Arthritis Sister Breast cancer, Onset Age: 40 Paternal Aunt Breast cancer, Onset Age: 60 Rheumatoid arthritis Maternal Grandmother Leukemia Social History Household Members: None Alcohol intake: current Alcohol intake frequency: a few times a week Patient Tobacco Use Status: Never used Tobacco Current occupational status: employed 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[employer] Review of Systems Const Details: Review of Systems Constitutional: Denies fever, chills, weight loss ENT: Denies vision changes, eye pain or eye redness, dental caries, dry mouth GI: Denies nausea, vomiting, diarrhea, abdominal pain, change in BM Pulm: Denies SOB, FRITZ, hemoptysis, wheezing Cards: Denies chest pain, palpitations Skin: Denies Raynaud's, rash, nail changes, photosensitivity, CAT CRACKER 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 Well appearing and in no apparent painful distress HEENT Conjunctiva and sclera clear. ?Pupils equal round and reactive to light. ?No lymphadenopathy. ? Blepharitis bilaterally CHEST/RESPIRATORY SYSTEM Normal respiratory effort and able to speak in complete sentences. ?Clear to auscultation bilaterally. ?No crackles, rales, rhonchi, wheezes heard. CARDIAC SYSTEM Regular rate and rhythm. ?S1 and S2 heard no murmurs. ?Radial pulses intact bilaterally MSK Hands: ?Good bid manager strength bilaterally. No deformities noted. ?No synovitis noted to the MCPs, PIPs or DIPs. ?No tenderness to palpation of these joints. Hyperextensible 3rd digit bilaterally Wrists: ?Full range of motion at the wrists without pain. ?No tenderness to palpation or synovitis noted to the wrists. Elbows: Full range of motion without pain. No tenderness, weakness, swelling, increased warmth or erythema. Shoulders: Full range of motion without pain. No tenderness, weakness, swelling, increased warmth or erythema. Hips: Full range of motion without pain. Hip bursa: No tenderness to palpation Knees: ?Full range of motion. ?No tenderness, swelling, increased warmth or erythema.?No effusion or crepitations Ankles: Full range of motion. ?No tenderness, swelling, increased warmth or erythema.? Feet: ?Negative squeeze test. ?No tenderness to palpation or swelling of the MTPs. Tender points:?No tenderness to palpation of the bilateral trapezius, supraspinatus, greater trochanters, anterior costochondral junctions, bilateral gluteal areas, bilateral suboccipital muscle insertions SKIN Skin intact without rashes. Results Reviewed Results Reviewed: Laboratory Tests 11/13/22 06/12/24 09:54 09:53 WBC 6.2 RBC 4.11 L Hgb 13.1 Hct 37.5 Plt Count 270 ESR 20 Sodium 140 Potassium 4.1 Chloride 104 Carbon Dioxide 27 BUN 18 H Creatinine 0.81 Total Bilirubin 0.6 AST 13 ALT 14 Alkaline Phosphatase 58 C-Reactive Protein 0.30 Total Protein 7.6 Albumin 4.2 Rheumatoid Factor 15.1 H Cycl Citrul Peptide IgG 155 H Assessment & Plan Assessment & Plan (1) Rheumatoid arthritis: Comment: +RF++CCP. Onset per patient in her 20s Per patient Had been on SSZ, MTX, anakinra for a number of years each with incomplete response On Humira for more than 13 years . Effective. Switched to Hyrimoz 12/2023 effective as well Code(s): M06.9 - Rheumatoid arthritis, unspecified Category: Medical Qualifiers: Rheumatoid arthritis location: multiple sites Rheumatoid factor presence: unspecified presence Qualified Code(s): M06.9 - Rheumatoid arthritis, unspecified Plan: #Seropositive nodular RA Patient is a 59-year-old female with seropositive nodular rheumatoid arthritis on Humira biosimilar. Overall doing well but is noticing flare-ups of her disease especially with repetitive use of the joint. Patient is unsure if this is different from the Humira. She thinks that it may be related to when the Humira is due and so for the next 3 months she is going to keep a calendar of when these flare-ups happen and if it is consistent where it happens right before her Humira is due we will decrease the frequency from every 2 weeks to every week Plan - Adalimumab aaty 40mg SC every 2 weeks - Labs today: CBC, CMP, ESR, CRP, Hepatitis panel - RTC 3 months - Labs before visit: CBC, CMP, ESR, CRP (2) Encounter for monitoring of adalimumab therapy: Code(s): Z51.81 - Encounter for therapeutic drug level monitoring; Z79.620 - longterm (current) use of immunosuppressive biologic Category: Medical Plan: #Long-term Use of TNF Inhibitors: Humira biosimilar Discussed with the patient the benefits and risks of TNF inhibitors for the management of the rheumatic condition Benefits include reduce pain, maintenance of remission and reduction of flares as well as ?progression of the disease Risks include injection sites/infusion reactions, serious infections (such as bacterial infections, opportunistic infections), malignancy, delaminating syndromes, autoimmune phenomena, CHF exacerbations, palmar plantar psoriasis and cytopenias Recommended rotating injection sites, and holding medication during and for up to 1 week after resolution of a febrile illness or open skin wound Plan I spent 30 minutes reviewing the record and labs, taking a history, examining the patient, discussing the treatment plan and documenting in the medical record Orders: Orders C Reactive Protein 3 Months M06.9 - Rheumatoid arthritis, unspecified, Z51.81 - Encounter for therapeutic drug level monitoring, Z79.620 - longterm (current) use of immunosuppressive biologic Comprehensive Met. Panel Today M06.9 - Rheumatoid arthritis, unspecified, Z51.81 - Encounter for therapeutic drug level monitoring, Z79.620 - middle or intermediate school principal (current) use of immunosuppressive biologic Hepatitis A,B,C Profile Today M06.9 - Rheumatoid arthritis, unspecified, Z51.81 - Encounter for therapeutic drug level monitoring, Z79.620 - longterm (current) use of immunosuppressive biologic Complete Blood Count Auto Diff 3 Months M06.9 - Rheumatoid arthritis, unspecified, Z51.81 - Encounter for therapeutic drug level monitoring, Z79.620 - longterm (current) use of immunosuppressive biologic Comprehensive Met. Panel 3 Months M06.9 - Rheumatoid arthritis, unspecified, Z51.81 - Encounter for therapeutic drug level monitoring, Z79.620 - longterm (current) use of immunosuppressive biologic Erythrocyte Sedimentation Rate 3 Months M06.9 - Rheumatoid arthritis, unspecified, Z51.81 - Encounter for therapeutic drug level monitoring, Z79.620 - middle or intermediate school principal (current) use of immunosuppressive biologic Complete Blood Count Auto Diff Today M06.9 - Rheumatoid arthritis, unspecified, Z51.81 - Encounter for therapeutic drug level monitoring, Z79.620 - middle or intermediate school principal (current) use of immunosuppressive biologic C Reactive Protein Today M06.9 - Rheumatoid arthritis, unspecified, Z51.81 - Encounter for therapeutic drug level monitoring, Z79.620 - middle or intermediate school principal (current) use of immunosuppressive biologic Erythrocyte Sedimentation Rate Today M06.9 - Rheumatoid arthritis, unspecified, Z51.81 - Encounter for therapeutic drug level monitoring, Z79.620 - longterm (current) use of immunosuppressive biologic T Spot TB Today M06.9 - Rheumatoid arthritis, unspecified, Z51.81 - Encounter for therapeutic drug level monitoring, Z79.620 - longterm (current) use of immunosuppressive biologic Coding Level of Care Code Est Pt Level 4 (02798) Complex EM visit Add On G2211 Diagnoses Rheumatoid arthritis involving multiple sites, unspecified whether rheumatoid factor present M06.9 Rheumatoid arthritis location: multiple sites Rheumatoid factor presence: unspecified presence Encounter for monitoring of adalimumab therapy Z51.81; Z79.620
[2024-10-13 09:13] VITALS: BP 120/70; PULSE 62; O2SAT 98; BMI 43.8
== END 2024-10-13 09:59 | disposition home or self-care (01) ==
PROVIDERS: PCP Family Medicine; Visit Provider Student in an Organized Health Care Education/Training Program
DX: M06.9 Rheumatoid arthritis, unspecified (principal); Z51.81 Encounter for therapeutic drug level monitoring; Z79.620 Long term (current) use of immunosuppressive biologic
CPT/HCPCS: 99214

== ENCOUNTER 2025-01-15 08:23 | Outpatient (REF) | payer BC, SELFPAY ==
[2025-01-15 08:35] LABS: MANUAL DIFF FLAG NO
[2025-01-15 09:05] LABS: Basophils Absolute Auto 0.1 X10*3/uL (0.0-0.2); Basophils Percent Auto 1.1 % (0-2); Eosinophils Absolute Auto 0.4 X10*3/uL (0.0-0.4); Eosinophils Percent Auto 9.1 % (0-4); Hematocrit 36.9 % (37.0-47.0); Hemoglobin 12.6 g/dl (12.0-16.0); Imm Gran Abs Auto 0.01 X10*3/uL (0.00-0.03); Imm Gran Pct Auto 0.2 % (0.0-0.4); Lymphocytes Absolute Auto 1.2 X10*3/uL (1.2-4.9); Lymphocytes Percent Auto 24.6 % (20-40); Mean Corpuscular HGB Conc 34.1 g/dl (31.0-35.0); Mean Corpuscular Hemoglobin 30.7 pg (27.0-33.0); Mean Platelet Volume 8.3 fL (9.4-12.3); Monocytes Absolute Auto 0.3 X10*3/uL (0.1-1.2); Monocytes Percent Auto 6.5 % (2-11); Neutrophils Absolute Auto 2.8 x10*3/uL (2.0-8.3); Neutrophils Percent Auto 58.5 % (45-73); Platelet Count 289 X10*3/uL (160-400); Red Cell Distribution Width 13.6 % (11.0-16.0); White Blood Count 4.8 X10*3/uL (4.8-10.8)
[2025-01-15 09:33] LABS: Alanine Aminotransferase 13 U/L (0-31); Alkaline Phosphatase 69 U/L (39-117); Anion Gap 10 (12-20); Aspartate Amino Transferase 15 U/L (5-31); Bilirubin Total 0.5 mg/dL (0.0-1.0); Blood Urea Nitrogen 21 mg/dL (9-16); C Reactive Protein 0.54 mg/dL (< or = 0.50); Calcium 9.4 mg/dL (8.4-10.2); Carbon Dioxide 27 mmol/L (22-29); Chloride 106 mmol/L (96-108); Estimated Glomerular Filt Rate > 60; Glucose Random 103 mg/dL (60-115); Sodium 139 mmol/L (135-145); Total Protein 7.7 g/dL (6.5-8.0)
[2025-01-15 09:51] LABS: Erythrocyte Sedimentation Rate 28 MM/HR (0-20)
== END 2025-01-15 08:24 | disposition home or self-care (01) ==
LOC: HO.LAB 08:23
PROVIDERS: PCP Family Medicine; Visit Provider Student in an Organized Health Care Education/Training Program
DX: M06.9 Rheumatoid arthritis, unspecified (principal); Z51.81 Encounter for therapeutic drug level monitoring; Z79.620 Long term (current) use of immunosuppressive biologic
CPT/HCPCS: 36415; 80053; 85025; 85652; 86140

== ENCOUNTER 2025-01-20 09:23 | Outpatient (AMB) | payer BC, SELFPAY ==
--- NOTE | 2025-01-20 09:32 | A.OFFVIS_ITS ---
Vital Signs 01/20/25 09:38 Height 5 ft Weight 226 lb 13.69 oz BMI 44.3 BP 124/80 Blood Pressure Location Lt brachial Position Sitting Pulse 60 Pulse Source Pulse Oximeter Pulse Oximetry (%) 97 Oxygen Delivery Method Room Air Intake Visit Reasons: 3 months Intake Note: Patient presents for 3 months follow. Allergies Seasonal Allergies Allergy (Verified 01/20/25 09:37) Itchy Eyes Medication List - Last Reconciled 01/20/25 by Autumn Hartley MD ferrous sulfate 325 mg PO DAILY hydrochlorothiazide 12.5 mg PO DAILY Hyrimoz(CF) Pen (adalimumab-adaz) 40 mg (0.4 mL) subcut QWEEK NS lactobacillus combination no.9 (Adult 50 Plus Probiotic) 4,000 mmu cells PO DAILY levothyroxine 150 mcg PO DAILY HPI Comments Details: Patient is a 59-year-old female with ulcerative colitis, seropositive nodular rheumatoid arthritis and hypothyroidism here today for follow up Interval History: Last seen 10/13/2024 with me. At that time she was on Humira bio similar reporting that she continues to have intermittent flare-ups. The plan was for her to do a calendar documentation of when she gets these flares to see if we should consider increasing the frequency of her Humira bio similar Her repeat blood work showed significantly elevated inflammatory markers after earl visit and so she was changed to weekly dosing Today, Patient is doing much better Tolerating the increased frequency Still has some mild flares but much better Rheumatologic History: +RF++CCP. Onset per patient in her 20s Per patient Had been on SSZ, MTX, anakinra for a number of years each with incomplete response On Humira for more than 13 years . Effective. Switched to Hyrimoz 12/2023 effective as well Initial history: This is a 57-year-old female with a past medical history of rheumatoid arthritis and osteoarthritis who presents for rheumatology evaluation. 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 Patient stated she was diagnosed with rheumatoid arthritis around 35 years ago in her 30s and she had been on numerous DMARDs. She states that she is currently relatively well controlled on Humira. She states she gets alternating joint pain depending on the joint she overused. Today she is having some right shoulder pain after shoveling snow yesterday and falling on her right shoulder. She states that she feels joint pain and swelling coming back if she misses her Humira dose. She stated that she was diagnosed with ulcerative colitis 13 years ago and had already been on Humira. She denies any skin rash. No history suggestive of uveitis or psoriasis. Current Rheumatology Medication(s): Adalimumab-adaz 40mg SC every 7 days [facility] Medical History (Updated 10/13/24 @ 09:41 by Autumn Hartley MD) Encounter for monitoring of adalimumab therapy PREST[place] on CPAP Obesity Rheumatoid arthritis Acquired hypothyroidism Ulcerative colitis Iron deficiency anemia Surgical History Hx of colonoscopy Hx of mammogram Family History Mother Arthritis Sister Breast cancer, Onset Age: 40 Paternal Aunt Breast cancer, Onset Age: 60 Rheumatoid arthritis Maternal Grandmother Leukemia Social History Household Members: None Alcohol intake: current Alcohol intake frequency: a few times a week Patient Tobacco Use Status: Never used Tobacco Current occupational status: employed 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[employer] Review of Systems Const Details: Review of Systems Constitutional: Denies fever, chills, weight loss ENT: Denies vision changes, eye pain or eye redness, dental caries, dry mouth GI: Denies nausea, vomiting, diarrhea, abdominal pain, change in BM Pulm: Denies SOB, FRITZ, hemoptysis, wheezing Cards: Denies chest pain, palpitations Skin: Denies Raynaud's, rash, nail changes, photosensitivity, DEPUTY DISTRICT CUSTOMS DIRECTOR: Denies headaches, weakness, paresthesias, recurrent falls MSK: as per HPI All other systems reviewed and are unremarkable except noted above Physical Exam Vital Signs: Last Vital Signs Pulse 60 01/20/25 09:38 BP 124/80 01/20/25 09:38 Pulse Ox 97 01/20/25 09:38 Oxygen Delivery Method Room Air 01/20/25 09:38 BMI result Body Mass Index 44.3 Vital signs reviewed Physical Examination CONSTITUITIONAL Patient alert and cooperative. Well appearing and in no apparent painful distress HEENT Conjunctiva and sclera clear. ?Pupils equal round and reactive to light. ?No lymphadenopathy. ? Blepharitis bilaterally CHEST/RESPIRATORY SYSTEM Normal respiratory effort and able to speak in complete sentences. ?Clear to auscultation bilaterally. ?No crackles, rales, rhonchi, wheezes heard. CARDIAC SYSTEM Regular rate and rhythm. ?S1 and S2 heard no murmurs. ?Radial pulses intact bilaterally MSK Hands: ?Good mill house supervisor strength bilaterally. No deformities noted. ?No synovitis noted to the MCPs, PIPs or DIPs. ?No tenderness to palpation of these joints. Hyperextensible 3rd digit bilaterally Wrists: ?Full range of motion at the wrists without pain. ?No tenderness to palpation or synovitis noted to the wrists. Elbows: Full range of motion without pain. No tenderness, weakness, swelling, increased warmth or erythema. Shoulders: Full range of motion without pain. No tenderness, weakness, swelling, increased warmth or erythema. Knees: ?Full range of motion. ?No tenderness, swelling, increased warmth or erythema.?No effusion or crepitations Ankles: Full range of motion. ?No tenderness, swelling, increased warmth or erythema.? Feet: ?Negative squeeze test. ?No tenderness to palpation or swelling of the MTPs. Tender points:?No tenderness to palpation of the bilateral trapezius, supraspinatus, greater trochanters, anterior costochondral junctions, bilateral gluteal areas, bilateral suboccipital muscle insertions SKIN Skin intact without rashes. Results Reviewed Results Reviewed: Laboratory Tests 10/13/24 01/15/25 10:31 08:34 WBC 4.8 RBC 4.10 L Hgb 12.6 Hct 36.9 L Plt Count 289 ESR 28 H Sodium 139 Potassium 4.0 Chloride 106 Carbon Dioxide 27 BUN 21 H Creatinine 0.71 AST 15 ALT 13 Alkaline Phosphatase 69 C-Reactive Protein 6.71 H 0.54 H Infectious serologies 10/13/24 10:31 Hepatitis A IgM Ab Nonreactive Hep Bs Antigen Negative Hep Bs Antibody NONREACTIVE Hep B Core Total Ab Nonreactive Hepatitis C Ab (EIA) Nonreactive TB Test (T-Spot) Com Negative Rheumatology labs 11/13/22 09:54 Rheumatoid Factor 15.1 H Cycl Citrul Peptide IgG 155 H Assessment & Plan Assessment & Plan (1) Rheumatoid arthritis: Comment: +RF++CCP. Onset per patient in her 20s Per patient Had been on SSZ, MTX, anakinra for a number of years each with incomplete response On Humira for more than 13 years . Effective. Switched to Hyrimoz 12/2023 effective as well Code(s): M06.9 - Rheumatoid arthritis, unspecified Category: Medical Qualifiers: Rheumatoid arthritis location: multiple sites Rheumatoid factor presence: unspecified presence Qualified Code(s): M06.9 - Rheumatoid arthritis, unspecified Plan: #Seropositive nodular RA Patient is a 59-year-old female with seropositive nodular rheumatoid arthritis on Humira biosimilar. Doing much better on weekly Humira. Inflammatory markers drastically improved as well. We will continue this regimen. Recommended regular yoga for stretching. Plan - Adalimumab adaz 40mg SC every 7 days - RTC 4 months - Labs before visit: CBC, CMP, ESR, CRP (2) Encounter for monitoring of adalimumab therapy: Code(s): Z51.81 - Encounter for therapeutic drug level monitoring; Z79.620 - terminal clerk (current) use of immunosuppressive biologic Category: Medical Plan: #Long-term Use of TNF Inhibitors: Humira biosimilar Discussed with the patient the benefits and risks of TNF inhibitors for the management of the rheumatic condition Benefits include reduce pain, maintenance of remission and reduction of flares as well as ?progression of the disease Risks include injection sites/infusion reactions, serious infections (such as bacterial infections, opportunistic infections), malignancy, delaminating syndromes, autoimmune phenomena, CHF exacerbations, palmar plantar psoriasis and cytopenias Recommended rotating injection sites, and holding medication during and for up to 1 week after resolution of a febrile illness or open skin wound Plan I spent 20 minutes reviewing the record and labs, taking a history, examining the patient, discussing the treatment plan and documenting in the medical record Orders: Orders Complete Blood Count Auto Diff 4 Months M06.9 - Rheumatoid arthritis, unspecified Comprehensive Met. Panel 4 Months M06.9 - Rheumatoid arthritis, unspecified C Reactive Protein 4 Months M06.9 - Rheumatoid arthritis, unspecified Erythrocyte Sedimentation Rate 4 Months M06.9 - Rheumatoid arthritis, unspecified Coding Level of Care Code Est Pt Level 3 (33774) Complex EM visit Add On G2211 Diagnoses Rheumatoid arthritis involving multiple sites, unspecified whether rheumatoid factor present M06.9 Rheumatoid arthritis location: multiple sites Rheumatoid factor presence: unspecified presence Encounter for monitoring of adalimumab therapy Z51.81; Z79.620
[2025-01-20 09:38] VITALS: BP 124/80; PULSE 60; O2SAT 97; BMI 44.3
== END 2025-01-20 10:10 | disposition home or self-care (01) ==
LOC: HO.RHE 09:24
PROVIDERS: PCP Family Medicine; Visit Provider Student in an Organized Health Care Education/Training Program
DX: M06.9 Rheumatoid arthritis, unspecified (principal); Z51.81 Encounter for therapeutic drug level monitoring; Z79.620 Long term (current) use of immunosuppressive biologic
CPT/HCPCS: 99213

== ENCOUNTER 2025-06-04 08:21 | Outpatient (REF) | payer BC, SELFPAY ==
--- OUTSIDE RECORDS SUMMARY | 2025-06-04 08:25 | XMS_ITS | Encounter Summary ---
Author Organization [facility] Address [address] [place] [id number] Phone Care Team Providers Care Bearingizer Name Role Phone Millie Cain CNP Primary Care Provide r Encounter Details Date Type Department Care Team (Late st Contact Info) Description 04/22/2023 Procedure Pass [facility], [address] [phone] Social History Tobacco Use Types Packs/Day Years Used Date Smoking Tobacco: Never Smokeless Tobacco: Never Alcohol Use Standard Drinks/Week Comments Not Currently 0 (1 standard drink = 0.6 oz pur e alcohol) Occasionally Child or Family Care Answer Date Record ed Do you have problems with on e of the following making it difficult for you to work, study, or receive health care? No 07/16/2022 Education Answer Date Recorded Are you interested in help w ith more adult education (for example, completing high school, GED, job training, learning the [place] language, technical skills, or developing parenting skills)? No 07/16/2022 Food Answer Date Recorded Within the past 6 months we worried whether our food would run out before we got money to buy more. Never True 07/16/2022 Within the past 6 months the food we bought just didn't last and we didn't have enough money to get more. Never True Residential Stability Answer Date Recor ded What is your housing situation today? I have jacquelyn sing 07/16/2022 How many times have you move d in the past 12 months? Zero (I did not move) 07/16/2022 Paying for Meds Answer Date Recorded Do you have trouble paying for medicines? No 07/16/2022 Paying Utility Bills Answer Date Record ed Do you have trouble paying your heating or elect ricity bill? No 07/16/2022 Transportation Answer Date Recorded Has the lack of transportati on kept you from medical appointments or from getting medications? No 07/16/2022 Unemployment Answer Date Recorded Are you currently unemployed or working on a part-time or temporary basis, and looking for work? No 07/16/2022 Digital Access Answer Date Recorded No 01/27/2023 No 01/27/2023 Reliable internet access at home? Not on file 01/27/2023 Device with a working camera? Not on file Comments No Sex and Gender Information Value Date Recorded Sex Assigned at Not on file Legal Sex Female 9:43 PM EDT Gender Identity Not on file Sexual Orientation Not on file documented as of this encounter Plan of Treatment Not on file documented as of this encounter Visit Diagnoses Not on filedocumented in this encounter Additional Health Concerns Assessment Noted Time PHQ-9 Depression Total Score: 0 06/20/20 21 3:06 PM EDT PHQ-2 Depression Total Score: 0 07/16/20 22 6:04 AM EST documented as of this encounter Care Teams Bearingizer Relationship Specialty Start Date End Date Millie Cain CNP [address] [place] [id number] [email or web address] PCP - General 09/04/17 documented as of this encounter Additional Source Comments The information contained in this document represents components of the legal health record. It is not the complete legal health record.[facility]
--- OUTSIDE RECORDS SUMMARY | 2025-06-04 08:25 | XMS_ITS | Encounter Summary ---
Author Organization [facility] Address [address] [place] [address] [place], [place] [phone] Phone Care Team Providers Care English Adjunct Faculty Name Role Phone Millie Cain CNP Primary Care Provide r Encounter Details Date Type Department Care Team (Late st Contact Info) Description 10/06/2020 Transcribe Orders [facility] [address] [place] [address] Millie Cain CNP [address] [place] [phone] Social History Tobacco Use Types Packs/Day Years Used Date Smoking Tobacco: Never Smokeless Tobacco: Never Alcohol Use Standard Drinks/Week Comments Not Currently 0 (1 standard drink = 0.6 oz pur e alcohol) Occasionally Comments No Sex and Gender Information Value Date Recorded Sex Assigned at Not on file Legal Sex Female 9:43 PM EDT Gender Identity Not on file Sexual Orientation Not on file documented as of this encounter Plan of Treatment Not on file documented as of this encounter Visit Diagnoses Not on filedocumented in this encounter Additional Health Concerns Assessment Noted Time PHQ-2 Depression Total Score: 0 05/02/20 20 4:04 PM EDT documented as of this encounter Care Teams English Adjunct Faculty Relationship Specialty Start Date End Date Millie Cain CNP [address] [place] [phone] PCP - General 09/04/17 documented as of this encounter Additional Source Comments The information contained in this document represents components of the legal health record. It is not the complete legal health record.[facility]
--- OUTSIDE RECORDS SUMMARY | 2025-06-04 08:25 | XMS_ITS | Encounter Summary ---
Author Organization [facility] Address [address] [place] [address] Phone Care Team Providers Care Supervisor Aluminum Boat Assembly Name Role Phone Millie Cain CNP Primary Care Provide r Encounter Details Date Type Department Care Team (Late st Contact Info) Description 03/26/2022 Transcribe Orders Virtual Department [address] [place] [address] Isaiah Sharp, 29 [facility] [place] [address] Encounter for screening mammogram for malignant neoplasm of breast (Primary Dx) Social History Tobacco Use Types Packs/Day Years [...] work, study, or receive health care? No 06/20/2021 Education Answer Date Recorded Are you interested in help w ith more adult education (for example, completing high school, GED, job training, learning the Brazilian language, technical skills, or developing parenting skills)? No 06/20/2021 Are you concerned about learning? Not on file 06/20/2021 Food Answer Date Recorded Within the past 6 months we worried whether our food would run out before we got money to buy more. Never True 06/20/2021 Within the past 6 months the food we bought just didn't last and we didn't have enough money to get more. Never True Paying for Meds Answer Date Recorded Do you have trouble paying for medicines? No 06/20/2021 Paying Utility Bills Answer Date Record ed Do you have trouble paying your heating or elect ricity bill? No 06/20/2021 Transportation Answer Date Recorded Has the lack of transportati on kept you from medical appointments or from getting medications? No 06/20/2021 Comments No Sex and Gender Information Value Date Recorded Sex Assigned at Not on file Legal Sex Female 9:43 PM EDT Gender Identity Not on file Sexual Orientation Not on file documented as of this encounter Plan of Treatment Not on file documented as of this encounter Results * BI MAMMOGRAM SCREENING WITH TOMOSYNTHESIS WITH CAD (BILATERAL) (03/29/2022 3:19 PM EDT) Anatomical Region Laterality Modality Breast Left, Breast Right, Breast Bilateral Bila teral Mammography 04/01/2022 6:26 PM EDT Impressions 04/01/2022 6:29 PM EDT BILATERAL BREASTS: Negative, no specific mammographic evidence of malignancy. Normal interval follow-up is recommended in 12 months. BI-RADS: BI-RADS CATEGORY: 1 - Negative. DENSITY: There are scattered fibroglandular densities. Narrative 04/01/2022 6:29 PM EDT STUDY: Bilateral screening mammography with tomosynthesis and CAD TECHNIQUE: Bilateral full-field digital screening mammography is obtained and read in conjunction with computer-aided detection. Tomosynthesis as well as 2-D C view imaging were obtained. COMPARISON: Comparison made to multiple prior, most recent March 09, 2021, and most remote October 17, 2014. BREAST COMPOSITION: There are scattered areas of fibroglandular density BILATERAL BREASTS: No significant masses, suspicious calcifications or other abnormalities are seen in either breast. Procedure Note Lesley Correa MD - 04/01/2022 STUDY: Bilateral screening mammography with tomosynthesis and CAD TECHNIQUE: Bilateral full-field digital screening mammography is obtainedand read in conjunction with computer-aided detection. Tomosynthesis aswell as 2-D C view imaging were obtained. COMPARISON: Comparison made to multiple prior, most recent March 09, 2021,and most remote October 17, 2014. BREAST COMPOSITION: There are scattered areas of fibroglandulardensity BILATERAL BREASTS: No significant masses, suspicious calcifications orother abnormalities are seen in either breast. IMPRESSION: BILATERAL BREASTS: Negative, no specific mammographic evidence ofmalignancy. Normal interval follow-up is recommended in 12 months. BI-RADS: BI-RADS CATEGORY: 1 - Negative. DENSITY: There are scattered fibroglandular densities. us Isaiah Sharp DO IMG MG EXAMS Final Result documented in this encounter Visit Diagnoses Diagnosis Encounter for screening mammogram for malignant neoplasm of breast- Primary Encounter for screening mammogram for malignant neoplasm of breast documented in this encounter Additional Health Concerns Assessment Noted Time PHQ-9 Depression Total Score: 0 06/20/20 21 3:06 PM EDT PHQ-2 Depression Total Score: 0 06/20/20 21 3:06 PM EDT documented as of this encounter Care Teams Supervisor [employer] Relationship Specialty Start Date End Date Millie Cain CNP [address] [place] [phone] [email or web address] PCP - General 09/04/17 documented as of this encounter Additional Source Comments The information contained in this document represents components of the legal health record. It is not the complete legal health record.[facility]
--- OUTSIDE RECORDS SUMMARY | 2025-06-04 08:25 | XMS_ITS | Encounter Summary ---
Author Organization [facility] Address [address] [place] [address] [address] [place] [address] Phone Care Team Providers Care Flight Engineer Inspector Name Role Phone Millie Cain CNP Primary Care Provide r Encounter Details Date Type Department Care Team (Late st Contact Info) Description 04/02/2024 Transcribe Orders Virtual Department 30 [place] [address] Isaiah Sharp, 29 [facility] [place] [address] Breast screening (Primary Dx) Social History Tobacco Use Types [...] work, study, or receive health care? No 07/23/2023 Education Answer Date Recorded Are you interested in help w ith more adult education (for example, completing high school, GED, job training, learning the Greek language, technical skills, or developing parenting skills)? No 07/23/2023 Are you concerned about learning? Not on file 07/23/2023 No 07/23/2023 Yes 07/23/2023 Food Answer Date Recorded Within the past 6 months we worried whether our food would run out before we got money to buy more. Never True 07/23/2023 Within the past 6 months the food we bought just didn't last and we didn't have enough money to get more. Never True Residential Stability Answer Date Recor ded What is your housing situation today? I have [address] 07/23/2023 How many times have you move d in the past 12 months? Zero (I did not move) 07/23/2023 Paying for Meds Answer Date Recorded Do you have trouble paying for medicines? No 07/23/2023 Paying Utility Bills Answer Date Record ed Do you have trouble paying your heating or elect ricity bill? No 07/23/2023 Transportation Answer Date Recorded Has the lack of transportati on kept you from medical appointments or from getting medications? No 07/23/2023 Unemployment Answer Date Recorded Are you currently unemployed or working on a part-time or temporary basis, and looking for work? No 07/16/2022 Digital Access Answer Date Recorded No 07/23/2023 Yes 07/23/2023 Do you have reliable internet access at home? Ye s 07/23/2023 Do you have a device (e.g., phone, tablet, computer) with a working camera? Yes 07/23/2023 Comments No Sex and Gender Information Value Date Recorded Sex Assigned at Not on file Legal Sex Female 9:43 PM EDT Gender Identity Not on file Sexual Orientation Not on file documented as of this encounter Plan of Treatment Not on file documented as of this encounter Results * BI MAMMOGRAM SCREENING WITH TOMOSYNTHESIS WITH CAD (BILATERAL) (07/23/2024 2:29 PM EST) Anatomical Region Laterality Modality Breast Left, Breast Right, Breast Bilateral Bila teral Mammography 07/25/2024 6:19 PM EST Impressions 07/25/2024 6:23 PM EST No mammographic evidence of malignancy in either breast. Annual screening mammography is recommended. BI-RADS 1 NEGATIVE The patient will be notified of the results and recommendations. Narrative 07/25/2024 6:23 PM EST BI MAMMOGRAM SCREENING WITH TOMOSYNTHESIS WITH CAD (BILATERAL) Additional patient information: Screening. COMPARISON: Comparison is made with relevant prior imaging. Breast composition: The breast tissue is almost entirely fatty. FINDINGS: No abnormal masses, suspicious calcifications, or other significant findings are identified mammographically in either breast. Procedure Note Maria Ines Melvin DO - 07/25/2024 BI MAMMOGRAM SCREENING WITH TOMOSYNTHESIS WITH CAD (BILATERAL) Additional patient information: Screening. COMPARISON: Comparison is made with relevant prior imaging. Breast composition: The breast tissue is almost entirely fatty. FINDINGS: No abnormal masses, suspicious calcifications, or other significantfindings are identified mammographically in either breast. IMPRESSION: No mammographic evidence of malignancy in either breast. Annual screening mammography is recommended. BI-RADS 1 NEGATIVE The patient will be notified of the results and recommendations. Isaiah Sharp DO IMG MG EXAMS Final Result documented in this encounter Visit Diagnoses Diagnosis Breast screening- Primary Breast screening, unspecified Breast screening Breast screening, unspecified documented in this encounter Additional Health Concerns Assessment Noted Time PHQ-9 Depression Total Score: 0 06/20/20 21 3:06 PM EDT PHQ-2 Depression Total Score: 0 07/23/20 23 12:59 PM EST documented as of this encounter Care Teams Flight Engineer Inspector Relationship Specialty Start Date End Date Millie Cain CNP [address] [place] [phone] [email or web address] PCP - General 09/04/17 documented as of this encounter Additional Source Comments The information contained in this document represents components of the legal health record. It is not the complete legal health record.[facility]
--- OUTSIDE RECORDS SUMMARY | 2025-06-04 08:25 | XMS_ITS | Encounter Summary ---
Author Organization [facility] Address [address] [place] [address] [place], [place] [phone] Phone Care Team Providers Care Voip Engineer Name Role Phone Millie Cain CNP Primary Care Provide r Encounter Details Date Type Department Care Team (Late st Contact Info) Description 06/28/2020 Transcribe Orders [facility] [address] [place] [address] Millie Cain CNP [address] [place] [address] Social History Tobacco Use Types Packs/Day Years [...] documented as of this encounter Care Teams Voip Engineer Relationship Specialty Start Date End Date Millie Cain CNP [address] [place] [phone] PCP - General 09/04/17 documented as of this encounter Additional Source Comments The information contained in this document represents components of the legal health record. It is not the complete legal health record.[facility]
--- OUTSIDE RECORDS SUMMARY | 2025-06-04 08:25 | XMS_ITS | Encounter Summary ---
Author Organization [facility] Address [address] [place] [address] Phone Care Team Providers Care Deicer Tester Name Role Phone Millie Cain CNP Primary Care Provide r Encounter Details Date Type Department Care Team (Late st Contact Info) Description 03/26/2022 Procedure Pass [facility], [address] [phone] Social History Tobacco Use Types Packs/Day Years [...] high school, GED, job training, learning the Nepalese language, technical skills, or developing parenting skills)? [...] EDT PHQ-2 Depression Total Score: 0 06/20/20 3:06 PM EDT documented as of this encounter Care Teams Deicer Tester Relationship Specialty Start Date End Date Millie Cain CNP [address] [place] [phone] [email or web address] PCP - General 09/04/17 documented as of this encounter Additional Source Comments The information contained in this document represents components of the legal health record. It is not the complete legal health record.[facility]
--- OUTSIDE RECORDS SUMMARY | 2025-06-04 08:25 | XMS_ITS | Encounter Summary ---
Author Organization [facility] Address [address] [place] [address] [place], [place] [phone] Phone Care Team Providers Care Asphalt Distributor Tender Name Role Phone Millie Cain CNP Primary Care Provide r Encounter Details Date Type Department Care Team (Late st Contact Info) Description 12/03/2017 Transcribe Orders [facility] [address] [place] [address] Millie Cain CNP [address] [place] [address] Social History Tobacco Use Types Packs/Day Years Used Date Smoking Tobacco: Never Smokeless Tobacco: Never Comments No Sex and Gender Information Value Date Recorded Sex Assigned at Not on file Legal Sex Female 9:43 PM EDT Gender Identity Not on file Sexual Orientation Not on file documented as of this encounter Plan of Treatment Not on file documented as of this encounter Visit Diagnoses Not on filedocumented in this encounter Care Teams Asphalt Distributor Tender Relationship Specialty Start Date End Date Millie Cain CNP [address] [place] [address] PCP - General 09/04/17 documented as of this encounter Additional Source Comments The information contained in this document represents components of the legal health record. It is not the complete legal health record.[facility]
--- OUTSIDE RECORDS SUMMARY | 2025-06-04 08:26 | XMS_ITS | Encounter Summary ---
Author Organization [facility] Address [address] [place] [address] [place], [place] [phone] Phone Care Team Providers Care Detasseler Name Role Phone Millie Cain CNP Primary Care Provide r Encounter Details Date Type Department Care Team (Late st Contact Info) Description 12/24/2018 Transcribe Orders [facility] [address] [place] [address] Millie Cain CNP [address] [place] [address] Social History Tobacco Use Types Packs/Day Years [...] Noted Time PHQ-2 Depression Total Score: 0 12/24/19 19 3:25 PM EDT documented as of this encounter Care Teams Detasseler Relationship Specialty Start Date End Date Millie Cain CNP [address] [place] [phone] PCP - General 09/04/17 documented as of this encounter Additional Source Comments The information contained in this document represents components of the legal health record. It is not the complete legal health record.[facility]
--- OUTSIDE RECORDS SUMMARY | 2025-06-04 08:26 | XMS_ITS | Encounter Summary ---
Author Organization [facility] Address [address] [place] [address] [place], [place] [phone] Phone Care Team Providers Care Band Instrument Repairer Name Role Phone Millie Cain CNP Primary Care Provide r Encounter Details Date Type Department Care Team (Late st Contact Info) Description 02/28/2020 Ancillary Orders [address] [address] Isaiah Sharp, DO [address] [place] [address] Breast screening Social History Tobacco Use Types Packs/Day Years [...] MAMMOGRAM SCREENING WITH TOMOSYNTHESIS WITH CAD (BILATERAL) (03/07/2020 2:53 PM EDT) Anatomical Region Laterality Modality Breast Left, Breast Right, Breast Bilateral Bila teral Mammography 03/07/2020 7:10 PM EDT Impressions 03/07/2020 7:13 PM EDT BILATERAL BREASTS: Negative, no evidence of malignancy. Normal interval follow- up is recommended in 12 months. Bi-RADS: BI-RADS CATEGORY: 1 - Negative. DENSITY: There are scattered fibroglandular densities. POS - [id number] Narrative 03/07/2020 7:13 PM EDT STUDY: Bilateral screening mammography with tomosynthesis and CAD TECHNIQUE: Bilateral full-field digital screening mammography is obtained and read in conjunction with computer-aided detection. Tomosynthesis as well as 2-D C view imaging were obtained. COMPARISON: Comparison made to multiple prior, most recent November 02, 2018, and most remote October 12, 2013. BREAST COMPOSITION: There are scattered areas of fibroglandular density BILATERAL BREASTS: No significant masses, calcifications or other abnormalities are seen. Procedure Note Lesley Correa MD - 03/07/2020 STUDY: Bilateral screening mammography with tomosynthesis and CAD TECHNIQUE: Bilateral full-field digital screening mammography is obtainedand read in conjunction with computer-aided detection. Tomosynthesis aswell as 2-D C view imaging were obtained. COMPARISON: Comparison made to multiple prior, most recent November 02, 2018,and most remote October 12, 2013. BREAST COMPOSITION: There are scattered areas of fibroglandulardensity BILATERAL BREASTS: No significant masses, calcifications or otherabnormalities are seen. IMPRESSION: BILATERAL BREASTS: Negative, no evidence of malignancy. Normal intervalfollow-up is recommended in 12 months. Bi-RADS: BI-RADS CATEGORY: 1 - Negative. DENSITY: There are scattered fibroglandular densities. POS - [id number] Isaiah Sharp DO IMG MG EXAMS Final Result documented in this encounter Visit Diagnoses Diagnosis Breast screening Breast screening, unspecified Breast screening Breast screening, unspecified documented in this encounter Additional Health Concerns Assessment Noted Time PHQ-2 Depression Total Score: 0 12/24/19 19 3:25 PM EDT documented as of this encounter Care Teams Band Instrument Repairer Relationship Specialty Start Date End Date Millie Cain CNP [address] [place] [phone] PCP - General 1/4/18 documented as of this encounter Additional Source Comments The information contained in this document represents components of the legal health record. It is not the complete legal health record.[facility]
--- OUTSIDE RECORDS SUMMARY | 2025-06-04 08:26 | XMS_ITS | Encounter Summary ---
Author Organization [facility] Address [address] [place] [address] [place], [place] [phone] Phone Care Team Providers Care Christian Science Healer Name Role Phone Millie Cain CNP Primary Care Provide r Encounter Details Date Type Department Care Team (Late st Contact Info) Description 09/30/2017 Ancillary Orders [address] [address] Isaiah Sharp, 29 [place] [address] Breast screening Social History Tobacco Use Types Packs/Day Years Used Date Smoking Tobacco: Never Assessed Comments Unknown Sex and Gender Information Value Date Recorded Sex Assigned at Not on file Legal Sex Female 9:43 PM EDT Gender Identity Not on file Sexual Orientation Not on file documented as of this encounter Plan of Treatment Not on file documented as of this encounter Results * BI MAMMOGRAM SCREENING WITH TOMOSYNTHESIS WITH CAD (BILATERAL) (10/29/2017 3:41 PM EST) Anatomical Region Laterality Modality Breast Left, Breast Right, Breast Bilateral Bila teral Mammography 10/30/2017 8:24 AM EST Impressions 10/30/2017 8:26 AM EST No mammographic signs of malignancy. Annual screening is recommended. BI-RADS CATEGORY: 1 - Negative. DENSITY: The breast tissue is almost entirely fat. POS - [id number] Narrative 10/30/2017 8:26 AM EST Bilateral mammography is performed in conjunction with computed aided detection. 3-D tomography along with 2-D C view imaging was also performed. Comparison made to previous dated as far back as 06/07/2005 and as recent as 10/22/2016. No suspicious masses, areas of architectural distortion or suspicious microcalcifications. Procedure Note Raiv Keenan MD - 10/30/2017 Bilateral mammography is performed in conjunction with computed aideddetection. 3-D tomography along with 2-D C view imaging was alsoperformed. Comparison made to previous dated as far back as 06/07/2005 andas recent as 10/22/2016. No suspicious masses, areas of architectural distortion or suspiciousmicrocalcifications. IMPRESSION: No mammographic signs of malignancy. Annual screening is recommended. BI-RADS CATEGORY: 1 - Negative. DENSITY: The breast tissue is almost entirely fat. POS - [id number] Isaiah Sharp DO IMG MG EXAMS Final Result documented in this encounter Visit Diagnoses Diagnosis Breast screening Breast screening, unspecified Breast screening Breast screening, unspecified documented in this encounter Care Teams Christian Science Healer Relationship Specialty Start Date End Date Millie Cain CNP [address] [place] [phone] PCP - General 09/04/17 documented as of this encounter Additional Source Comments The information contained in this document represents components of the legal health record. It is not the complete legal health record.[facility]
--- OUTSIDE RECORDS SUMMARY | 2025-06-04 08:26 | XMS_ITS | Clinical Summary ---
Author Organization [facility] Address [address] [place] [phone] Phone Care Team Providers Care Measurement And Verification Engineer Name Role Phone Millie Cain CNP Primary Care Provide r Allergies No known active allergies Medications adalimumab (HUMIRA) 40 mg/0.8 mL syringe kit 40 mg every 14 (fourteen) days. Active ferrous sulfate 325 mg (65 mg redding iron) tablet 1 tablet Active Bacillus coagulans 10 billion cell CpDR 1 tablet Active hydroCHLOROthiazide 12.5 mg capsule TAKE 1 CAPSULE BY MOUTH EVERY DAY 90 capsule 1 5 Active levothyroxine (SYNTHROID, LEVOTHROID) 150 MCG tabletIndications:A cquired hypothyroidism TAKE 1 TABLET BY MOUTH EVERY DAY IN THE MORNING 90 tablet 1 5 Active Active Problems Problem Noted Date Diagnosed Date Cellulitis and abscess of trunk 07/26/2024 Assessment & Plan (09/09/2024 3:40 PM EST): Healing/resolving, keep area clean, return if any recurrence Assessment & Plan (07/26/2024 9:48 AM EST): Open 4 mm lesion with erythema surrounding, no expressed discharge. Take antibiotic and return in 1 - 2 weeks for recheck. Wash daily with soap and water, and cover with DSD until healed. Watery eyes 07/23/2023 Assessment & Plan (07/26/2024 9:49 AM EST): Most likely allergy based, self-reports going away, suggest she start a daily antihistamine such as Zyrtec before and through fall season Assessment & Plan (07/23/2023 1:29 PM EST): Persistent watery eyes, she has appt to see email marketing specialist Hidradenitis suppurativa 07/23/2023 Assessment & Plan (07/26/2024 9:47 AM EST): Suspect open lesion and cellulitis related to skin disorder. Continue to keep skin clean, reduce weight Assessment & Plan (07/23/2023 1:28 PM EST): Primarily groin, lesions come and go, no abscess, lesions dried resolving ASCUS of cervix with negative high risk HPV 07/03 Overview (07/24/2022): 07/2022 - recheck pap in 2024 Iron deficiency anemia 05/02/2020 Assessment & Plan (07/23/2023 1:34 PM EST): CBCs have been normal past three years Assessment & Plan (07/18/2022 3:44 PM EST): Taking iron daily. Not having heavy periods any longer, update labs Assessment & Plan (06/20/2021 3:34 PM EDT): Taking iron supplement daily, update levels, labs Acquired hypothyroidism 10/15/2017 Assessment & Plan (07/26/2024 9:45 AM EST): Clinically euthyroid Assessment & Plan (07/23/2023 1:32 PM EST): Clinically euthyroid Assessment & Plan (07/18/2022 3:41 PM EST): Clinically euthyroid, weight gain probably due to lifestyle, diet that thyroid Assessment & Plan (06/20/2021 3:32 PM EDT): Clinically euthyroid History of deep venous thrombosis 10/15/2017 History of thrombophlebitis 10/15/2017 Class 3 severe obesity due t o excess calories with serious comorbidity and body mass index (BMI) of 40.0 to 44.9 in adult 10/15/2017 Assessment & Plan (07/26/2024 9:43 AM EST): Weight has decreased by nearly twenty pounds, further weight loss would benefit patient, limit snacking, choose healthy options Assessment & Plan (07/23/2023 1:31 PM EST): Encouraged her to be more active and reduce weight Assessment & Plan (07/18/2022 3:41 PM EST): Encouraged to reduce weight, be active, healthy diet and avoid weight gain Assessment & Plan (06/20/2021 3:33 PM EDT): Avoid weight gain, encouraged her to be more active, reduce calories and reduce weight Assessment & Plan (10/15/2017 3:50 PM EST): Rising weight, encouraged her to reverse this process and reduce weight, discussed CV risk with obesity and postmenopausal women. Increase exercise including duration, intensity, walk more, use the stairs more at work, reduce portions, reviewed plate method for healthy diet PRESTON on CPAP 10/15/2017 Assessment & Plan (07/26/2024 9:48 AM EST): Uses nightly with benefit Assessment & Plan (07/23/2023 1:30 PM EST): Stable with nightly CPAP use Assessment & Plan (07/18/2022 3:42 PM EST): Stable with nightly use of CPAP Assessment & Plan (06/20/2021 3:33 PM EDT): Stable on current regimen of CPAP Assessment & Plan (10/15/2017 3:51 PM EST): Continue use of CPAP Rheumatoid arthritis 10/15/2017 Overview (11/13/2022): Established with [facility] rheumatology 10/[address] robles Assessment & Plan (07/26/2024 9:45 AM EST): Stable on Humira under the care of [facility] rheumatology. Moving slow today knees most bothersome at present, some OA. Pt would benefit from weight loss and offloading these joints Assessment & Plan (07/23/2023 1:29 PM EST): Under the care of [facility] rheumatology, stable with the Humira Assessment & Plan (07/18/2022 3:43 PM EST): Under the care of Dr Robles who unfortunately is moving she will establish with new partition notcher, she is looking at [facility]. Stable on Humira. Offloading joints by weight reduction would benefit pt. Assessment & Plan (06/20/2021 3:31 PM EDT): Under the care of rheumatology, stable on Humira Assessment & Plan (10/15/2017 3:50 PM EST): Stable on current regimen, f/u with Dr Simmons Ulcerative colitis 10/15/2017 Assessment & Plan (07/26/2024 9:45 AM EST): Stable on Humira Assessment & Plan (07/23/2023 1:34 PM EST): Scheduled for next colonoscopy 09/2023, no flares Assessment & Plan (07/18/2022 3:43 PM EST): Stable on current regimen, under the surveillance of Dr Dyer. Assessment & Plan (06/20/2021 3:32 PM EDT): Under the care of gastro in [place], stable on Humira and every two year colonoscopy Assessment & Plan (10/15/2017 3:50 PM EST): Stable on current regimen, f/u with Dr Dyer Resolved Problems Problem Noted Date Diagnosed Date Resolved Date Allergic conjunctivitis and rhinitis, bilateral 05/12/2023 07/23/2023 Assessment & Plan (05/12/2023 11:45 AM EDT): Recommend she stops the products she is using , names unknown. Gave her a list of oral antihistamine - to select one and start on this and remain on it through her season. To this she add Flonase if needed which may also help eye sx. I suggested Alaway eye drops which are an eye antihistamine. If no better or worsening after week or two then return for re-evaluation Immunizations Immunization Administration Dates Next Due COVID-19 (Pre-06/23) Moderna Vaccine, mRNA, PF 12/01/2020,11/03/2020 INFLUENZA, SPLIT VIRUS, TRIV ALENT W/ PRESERVATIVE IM 06/13/2016,05/05/2013,06/19/2012,06/04,06/29/2010,05/29/2009 Influenza Quadrivalent MDCK Preservative Free IM 06/18/2020,08/06/2019 Influenza Quadrivalent Prese rvative Free IM 06/07/2023,06/20/2021,06/18/2020,06/25 Influenza Quadrivalent w/ Pr eservative IM 06/20/2022,06/18/2017,05/11/2017 Influenza Trivalent MDCK Pre servative Free IM 05/16/2024 Influenza, Unspecified Formulation 06/30,08/06/2019,05/24/2008,06/24 Pneumococcal conjugate PCV13 10/15/2016 Pneumococcal polysaccharide PPSV23 06/20/2021 Td (adult) 5 Lf Tetanus Toxo id, PF, Adsorbed 12/23/2018 Tdap 06/07/2008 Zoster recombinant 09/28/2021,07/07/2021 Family History Medical History Relation Comments No Known Problems Brother Leukemia Maternal Grandmother Other Maternal Grandmother Family hist ory of cancer Arthritis Mother Osteoarthritis Mother Rheumatoid arthritis Paternal Aunt 1 Breast cancer Paternal Aunt 2 Breast cancer Sister 1 No Known Problems Sister 2 No Known Problems Sister 3 Relation Status Comments Brother Maternal Grandmother Mother Alive Paternal Aunt 1 Paternal Aunt 2 Sister 1 Sister 2 Sister 3 Social History Tobacco Use Types Packs/Day Years Used Date Smoking Tobacco: Never Smokeless Tobacco: Never Tobacco Cessation:Counseling Given: Not Answered Alcohol Use Standard Drinks/Week Comments Not Currently 0 (1 standard drink = 0.6 oz pur e alcohol) Occasionally Child or Family Care Answer Date Record ed Do you have problems with on e of the following making it difficult for you to work, study, or receive health care? No 07/20/2024 Education Answer Date Recorded Are you interested in help w ith more adult education (for example, completing high school, GED, job training, learning the [place] language, technical skills, or developing parenting skills)? No 07/20/2024 Are you concerned about learning? Not on file 07/20/2024 No 07/20/2024 Yes 07/20/2024 Food Answer Date Recorded Within the past 6 months we worried whether our food would run out before we got money to buy more. Never True 07/20/2024 Within the past 6 months the food we bought just didn't last and we didn't have enough money to get more. Never True Residential Stability Answer Date Recor ded What is your housing situation today? I have [address] 07/20/2024 How many times have you move d in the past 12 months? Zero (I did not move) 07/20/2024 Paying for Meds Answer Date Recorded Do you have trouble paying for medicines? No 07/20/2024 Paying Utility Bills Answer Date Record ed Do you have trouble paying your heating or elect ricity bill? No 07/20/2024 Transportation Answer Date Recorded Has the lack of transportati on kept you from medical appointments or from getting medications? No 07/20/2024 Unemployment Answer Date Recorded Are you currently unemployed or working on a part-time or temporary basis, and looking for work? No 07/16/2022 Digital Access Answer Date Recorded No 07/20/2024 Yes 07/20/2024 Do you have reliable internet access at home? Ye s 07/20/2024 Do you have a device (e.g., phone, tablet, computer) with a working camera? Yes 07/20/2024 Intimate Partner Violence Answer Date R ecorded Denied Basic Needs Not on file 07/20/2024 In the past 12 months have y ou been in a relationship with a person who hurts, threatens, or tries to control you? No 07/20/2024 Worried food would run out Not on file 07/20 In the past 12 months have y ou been in a relationship with a person who hurts, threatens, or tries to control you? No 07/20/2024 Comments No Sex and Gender Information Value Date Recorded Sex Assigned at Not on file Legal Sex Female 9:43 PM EDT Gender Identity Not on file Sexual Orientation Not on file Last Filed Vital Signs Vital Sign Reading Time Taken Comments Blood Pressure 132/70 09/09/2024 3:19 PM EST Pulse 72 09/09/2024 3:19 PM EST Temperature 37.1 C (98.7 F) 09/09/2024 3:19 PM EST Respiratory Rate 20 07/23/2023 12:55 PM EST Oxygen Saturation 96% 09/09/2024 3:19 PM EST Inhaled Oxygen Concentration - - Weight 100.7 kg (222 lb) 07/26/2024 8:52 AM EST Height 150 cm (4' 11.06 ) 09/09/2024 3:19 PM EST Body Mass Index 44.76 07/26/2024 8:52 AM EST Plan of Treatment Health Maintenance Due Date Last Done Comments COLOGUARD 02/14/2009 FIT TEST 02/14/2009 FOBT 02/14/2009 SIGMOIDOSCOPY 02/14/2009 VIRTUAL COLONOSCOPY 02/14/2009 RSV VACCINE (1 - Risk 60-74 years 1-dose series) 2024 INFLUENZA VACCINE (#1) 2025 , 06/07/2023, 06/30/2022, Additional history exists COVID-19 VACCINE (8 - Moderna risk season) 2025 05/16/2024, 06/07/2023, 07/19/2022, Additional history exists DEPRESSION SCREENING 07/20/2025 07/20/2024, 06/20/20 21 TSH LEVEL 08/30/2025 08/30/2024, 11/30, 12/25/2022, Additional history exists POTASSIUM LEVEL 01/15/2026 01/15/2025, 08/03, 11/13/2022, Additional history exists PNEUMOCOCCAL VACCINES (50+ years) (3 of 3 - PPSV23, PCV20 or PCV21) 06/20/2026 06/20/2021, 10/15/2016 MAMMOGRAM 07/23/2026 07/23/2024, 05/03, 03/29/2022, Additional history exists PAP SMEAR 07/18/2027 07/18/2022, 10/15/2016 SCREENING FOR DIABETES 08/30/2027 08/30/2024 Adult Td,Tdap Booster 12/23/2028 12/23/2018, 008 LIPID PANEL 08/30/2029 08/30/2024, 07/02, 05/04/2020, Additional history exists COLONOSCOPY 10/29/2033 10/30/2023, 04/02, 11/24/2018, Additional history exists COLORECTAL CANCER SCREENING 10/29/2033 HEPATITIS C SCREENING Completed 01/08/2005 HIV ONE-TIME SCREENING (18-65 YEARS) Completed 01/08/2005 ZOSTER VACCINES Completed 09/28/2021, 07/07/2021 SMOKING STATUS SCREENING (Once After 26 Yrs) Completed 09/09/2024 HEPATITIS A VACCINES Aged Out No long er eligible based on patient's age to complete this topic HIB VACCINES Aged Out No longer eligi ble based on patient's age to complete this topic MENINGOCOCCAL VACCINES (ACWY) Aged Out No longer eligible based on patient's age to complete this topic MENINGOCOCCAL VACCINES (B) Aged Out N o longer eligible based on patient's age to complete this topic Medical Devices Not on file Procedures Procedure Name Priority Date/Time Associated Diagnosis Comments OUTSIDE POTASSIUM LEVEL Routine 01/15/2025 LIPID PANEL Routine 08/30/2024 8:21 AM EST Annual physical exam TSH Routine 08/30/2024 8:21 AM EST Acquired hypothyroidism BI MAMMOGRAM SCREENING WITH TOMOSYNTHESIS WITH CAD (BILATERAL) Routine 07/23/2024 2:29 PM EST Breast screening HM COLONOSCOPY FOR RESULT ENTRY ONLY Routine 10/30/2023 12:19 PM EST PAP TEST Routine 07/18/2022 12:00 AM EST OUTSIDE HIV Routine 01/08/2005 OUTSIDE HEPATITIS C VIRUS SCREENING Routine 01/08/2005 from Last 3 Months or Most Recently Relevant to Health Maintenance Results * Outside Potassium Level (01/15/2025) Potassium level - External 4.0 3.4 - 5.0 mmol/L Historical Provider MD LAB BLOOD ORDERABLES Cynthia l Result * TSH (08/30/2024 8:21 AM EST) TSH 2.01 0.27 - 4.20 uIU/mL [facility] Blood 08/30/2024 8:21 AM EST 08/30/2024 8:25 AM EST Millie Cain CNP LAB BLOOD ORDERABLES Final Result [address] [address] * (ABNORMAL) Lipid panel (08/30/2024 8:21 AM EST) HDL 37 mg/dL [facility] Comment: Interpretation <40 mg/dL: Low HDL cholesterol (major risk factor for CHD) Greater than or equal to 60 mg/dL: High HDL cholesterol ( negative risk factor for CHD) HDL - cholesterol is affected by a number of factors, e.g. smoking, excerise, hormones, sex and age. CHOLESTEROL 193 0 - 240 mg/dL [facility] TRIGLYCERIDES 235(H) 30 - 160 mg/dL [facility] LDL 109 50 - 129 mg/dL [facility] Comment: LDL levels in terms of risk for coronary heart disease: <100 mg/dL: Optimal 100-129 mg/dL: Near or above optimal 130-159 mg/dL: Borderline high 160-189 mg/dL: High >190 mg/dL: Very High CARDIAC RISK RATIO 5.2(H) 3.3 - 4.4 C [facility] Blood 08/30/2024 8:21 AM EST 08/30/2024 8:25 AM EST Millie Cain FLARE WORKER LAB BLOOD ORDERABLES Final Result [address] [address] * BI MAMMOGRAM SCREENING WITH TOMOSYNTHESIS WITH [...] in either breast. Procedure Note Maria Ines Melvin, - 07/25/2024 BI MAMMOGRAM SCREENING WITH TOMOSYNTHESIS [...] Sharp DO IMG MG EXAMS Final Result * HM COLONOSCOPY FOR RESULT ENTRY ONLY (10/30/2023 12:19 PM EST) us Historical Provider [facility] Final Result * (ABNORMAL) Pap Smear (07/18/2022 12:00 AM EST) 07/18/2022 07/19/2022 10: 07 AM EST Narrative SEE NARRATIVE - 07/24/2022 8:47 AM EST [address] [address] Control Technician: Reshma Silverio MD FLOORING SALES MANAGER Cytology Report FINAL DIAGNOSIS A. PAP SMEAR (SUREPATH) CE: SPECIMEN ADEQUACY: Satisfactory for evaluation; transformation zone present. INTERPRETATION: EPITHELIAL CELL ABNORMALITY - SQUAMOUS. Atypical squamous cells of undetermined significance. Electronically Signed Out By: MD Gini Schneider CT(ASCP) By his/her signature above, the pathologist listed as making the Final Diagnosis certifies that he/she has personally reviewed this case and confirmed or corrected the diagnosis. The Pap test is a screening test primarily for squamous cancers and precursors and has associated false-negative and false-positive results. New technologies such as liquid-based preparations may decrease but will not eliminate all false-negative results. Regular sampling and follow-up of unexplained clinical signs and symptoms are recommended to minimize false negative results. PROCEDURES/ADDENDA HPV Testing (Requested) Ordered Date: 07/19/2022 A. PAP SMEAR (SUREPATH) CE: Human Papilloma Virus Test Negative for high-risk human papillomavirus types 16, 18, 45 and the Other high risk probe set (Includes 31, 33, 35, 39, 51, 52, 56, 58, 59, 66, 68) by [employer] On[employer]arity HR-HPV analysis. Clinical correlation is advised. This HPV test was performed at [facility], [address] [place] [address]. This test has been FDA approved for SurePath cervical cytology specimens. The accuracy and precision of this test for all other specimen sources has been verified in the Cytopathology Laboratory of the [facility] and has not been cleared or approved by the U.S. Food and Drug Administration. Clinical correlation is advised. CLINICAL HISTORY Date of Last Menstrual Period: Not Provided Menstrual History: Post Menopausal Other Clinical Conditions: Screening Pap SPECIMEN SOURCE A: PAP SMEAR (SUREPATH) CE Patient Name: EDWARDO WILLIAMSON : 1965 (Age: 57) Sex: F Institution: [facility] Location: [facility] Date of Collection: 07/18/2022 Date of Reported: 07/24/2022 08:47 Results to: Millie Cain GUT SORTER us Millie Cain FLARE WORKER CYTOLOGY ORDERABLES F inal Result SEE NARRATIVE * Outside Hepatitis C Virus Screening (01/08/2005) Hepatitis C Screening - External Neg (patient reported) Historical Provider LAB BLOOD ORDERABLES Cynthia l Result * OUTSIDE HIV TEST (01/08/2005) HIV - External Neg (patient reported) Historical Provider MD LAB BLOOD ORDERABLES Cynthia l Result from Last 3 Months or Most Recently Relevant to Health Maintenance Insurance [facility] PPO [facility] OUT OF STATE PPO [place] OUT OF STATE PPO [place] OUT OF STATE PPO [employer] [place] OUT OF STATE PPO [employer]UE [employer] OUT OF STATE PPO [employer] Care Teams Measurement And Verification Engineer Relationship Specialty Start Date End Date Millie Cain CNP [address] [place] [address] [place] [address] PCP - General 09/04/17 Additional Source Comments The information contained in this document represents components of the legal health record. It is not the complete legal health record.[facility]
--- OUTSIDE RECORDS SUMMARY | 2025-06-04 08:26 | XMS_ITS | Encounter Summary ---
Author Organization [facility] Address [address] [place] [address] [place], [place] [id number] Phone Care Team Providers Care Stock Control Supervisor Name Role Phone Millie Cain CNP Primary Care Provide r Encounter Details Date Type Department Care Team (Late st Contact Info) Description 10/17/2017 Transcribe Orders [facility] [address] [place] [address] Millie Cain CNP [address] [place] [address] [email or web address] Social History Tobacco Use Types Packs/Day Years Used Date Smoking Tobacco: Never Smokeless Tobacco: Never Comments Unknown Sex and Gender Information Value Date Recorded Sex Assigned at Not on file Legal Sex Female 9:43 PM EDT Gender Identity Not on file Sexual Orientation Not on file documented as of this encounter Plan of Treatment Not on file documented as of this encounter Visit Diagnoses Not on filedocumented in this encounter Care Teams Stock Control Supervisor Relationship Specialty Start Date End Date Millie Cain CNP [address] [place] [address] [email or web address] PCP - General 09/04/17 documented as of this encounter Additional Source Comments The information contained in this document represents components of the legal health record. It is not the complete legal health record.[facility]
--- OUTSIDE RECORDS SUMMARY | 2025-06-04 08:26 | XMS_ITS | Encounter Summary ---
Author Organization [facility] Address [address] [place] [address] Drive [address] [place] [id number] Phone Care Team Providers Care Barn Hand Name Role Phone Millie Cain CNP Primary Care Provide r Encounter Details Date Type Department Care Team (Late st Contact Info) Description 03/07/2021 Procedure Pass [facility], [address] [address] Social History Tobacco Use Types Packs/Day Years [...] documented as of this encounter Care Teams Barn Hand Relationship Specialty Start Date End Date Millie Cain CNP [address] [facility] [place] [address] PCP - General 09/04/17 documented as of this encounter Additional Source Comments The information contained in this document represents components of the legal health record. It is not the complete legal health record.[facility]
--- OUTSIDE RECORDS SUMMARY | 2025-06-04 08:26 | XMS_ITS | Encounter Summary ---
Author Organization [facility] Address [address] [place] [address] [place], [place] [phone] Phone Care Team Providers Care Comptometer Operator Name Role Phone Millie Cain CNP Primary Care Provide r Encounter Details Date Type Department Care Team (Late st Contact Info) Description 09/18/2018 Ancillary Orders [address] [address] Isaiah Sharp, [address] [place] [address] Breast screening Social History Tobacco Use Types [...] MAMMOGRAM SCREENING WITH TOMOSYNTHESIS WITH CAD (BILATERAL) (11/02/2018 3:17 PM EST) Anatomical Region Laterality Modality Breast Left, Breast Right, Breast Bilateral Bila teral Mammography 11/02/2018 10:0 7 PM EST Impressions 11/02/2018 10:08 PM EST No mammographic evidence of malignancy. RECOMMENDED FOLLOWUP: Routine screening mammography is recommended, as clinically appropriate. The results will be sent to the patient. BI-RADS CATEGORY: 1 - Negative. BREAST DENSITY: The breast tissue is almost entirely fat. POS - [facility] Narrative 11/02/2018 10:08 PM EST BI MAMMOGRAM SCREENING WITH TOMOSYNTHESIS WITH CAD (BILATERAL) HISTORY: Screening. COMPARISON: Prior studies dating back to 2011, most recently 10/29/2017. TECHNIQUE: Digital breast tomosynthesis was performed in CC and MLO projections. Reconstructed 2-D C-views generated from the tomosynthesis images. Images interpreted in conjunction with R-2 Image Fittings Tightener computer-aided detection (CAD). FINDINGS: BREAST DENSITY: The breasts are nearly entirely fatty replaced. Stable fibroglandular pattern. There are no suspicious masses, suspicious areas of architectural distortion or suspicious clusters of microcalcifications. Procedure Note Nora Mcguire MD - 11/02/2018 BI MAMMOGRAM SCREENING WITH TOMOSYNTHESIS WITH CAD (BILATERAL) HISTORY: Screening. COMPARISON: Prior studies dating back to 2011, most recently 10/29/2017. TECHNIQUE: Digital breast tomosynthesis was performed in CC and MLOprojections. Reconstructed 2-D C-views generated from the tomosynthesisimages. Images interpreted in conjunction with R-2 Image Checkercomputer-aided detection (CAD). FINDINGS: BREAST DENSITY: The breasts are nearly entirely fatty replaced. Stable fibroglandular pattern. There are no suspicious masses, suspicious areas of architecturaldistortion or suspicious clusters of microcalcifications. IMPRESSION: No mammographic evidence of malignancy. RECOMMENDED FOLLOWUP: Routine screening mammography is recommended, asclinically appropriate. The results will be sent to the patient. BI-RADS CATEGORY: 1 - Negative. BREAST DENSITY: The breast tissue is almost entirely fat. POS - CDHMAMA Isaiah Sharp DO IMG MG EXAMS Final Result documented in this encounter Visit Diagnoses Diagnosis Breast screening Breast screening, unspecified Breast screening Breast screening, unspecified documented in this encounter Care Teams Comptometer Operator Relationship Specialty Start Date End Date Millie Cain CNP [address] [place] [phone] (work) [email or web address] PCP - General 09/04/17 documented as of this encounter Additional Source Comments The information contained in this document represents components of the legal health record. It is not the complete legal health record.[facility]
--- OUTSIDE RECORDS SUMMARY | 2025-06-04 08:26 | XMS_ITS | Encounter Summary ---
Author Organization [facility] Address [address] [place] [address] [place], [place] [phone] Phone Care Team Providers Care Document Restorer Name Role Phone Millie Cain CNP Primary Care Provide r Encounter Details Date Type Department Care Team (Late st Contact Info) Description 03/07/2021 Ancillary Orders [address] [address] Isaiah Sharp, DO [address] [place] [address] Breast screening Social History Tobacco Use Types [...] MAMMOGRAM SCREENING WITH TOMOSYNTHESIS WITH CAD (BILATERAL) (03/09/2021 3:50 PM EDT) Anatomical Region Laterality Modality Breast Left, Breast Right, Breast Bilateral Bila teral Mammography 03/09/2021 6:27 PM EDT Impressions 03/09/2021 6:31 PM EDT BILATERAL BREASTS: Negative, no evidence of malignancy. Normal interval follow- up is recommended in 12 months. Bi-RADS: BI-RADS CATEGORY: 1 - Negative. DENSITY: There are scattered fibroglandular densities. Narrative 03/09/2021 6:31 PM EDT STUDY: Bilateral screening mammography with tomosynthesis and CAD TECHNIQUE: Bilateral full-field digital screening mammography is obtained and read in conjunction with computer-aided detection. Tomosynthesis as well as 2-D C view imaging were obtained. COMPARISON: Comparison made to multiple prior, most recent March 07, 2020, and most remote October 12, 2013. BREAST COMPOSITION: There are scattered areas of fibroglandular density BILATERAL BREASTS: No significant masses, suspicious calcifications or other abnormalities are seen. Procedure Note Lesley Correa MD - 03/09/2021 STUDY: Bilateral screening mammography with tomosynthesis and CAD TECHNIQUE: Bilateral full-field digital screening mammography is obtainedand read in conjunction with computer-aided detection. Tomosynthesis aswell as 2-D C view imaging were obtained. COMPARISON: Comparison made to multiple prior, most recent March 07, 2020,and most remote October 12, 2013. BREAST COMPOSITION: There are scattered areas of fibroglandulardensity BILATERAL BREASTS: No significant masses, suspicious calcifications orother abnormalities are seen. IMPRESSION: BILATERAL BREASTS: Negative, no evidence of malignancy. Normal intervalfollow-up is recommended in 12 months. Bi-RADS: BI-RADS CATEGORY: 1 - Negative. DENSITY: There are scattered fibroglandular densities. Isaiah Sharp DO IMG MG EXAMS Final Result documented in this encounter Visit Diagnoses Diagnosis Breast screening Breast screening, unspecified Breast screening Breast screening, unspecified documented in this encounter Additional Health Concerns Assessment Noted Time PHQ-2 Depression Total Score: 0 05/02/20 20 4:04 PM EDT documented as of this encounter Care Teams Document Restorer Relationship Specialty Start Date End Date Millie Cain CNP [address] [place] [phone] (work) [email or web address] PCP - General 09/04/17 documented as of this encounter Additional Source Comments The information contained in this document represents components of the legal health record. It is not the complete legal health record.[facility]
--- OUTSIDE RECORDS SUMMARY | 2025-06-04 08:26 | XMS_ITS | Encounter Summary ---
Author Organization [facility] Address [address] [place] [address] [place], [place] [phone] Phone Care Team Providers Care Post Secondary Professional Name Role Phone Millie Cain CNP Primary Care Provide r Encounter Details Date Type Department Care Team (Late st Contact Info) Description 05/04/2020 Transcribe Orders [facility] [address] [place] [address] Millie Cain CNP [address] [place] [phone] Social History Tobacco Use Types Packs/Day Years [...] documented as of this encounter Care Teams Post Secondary Professional Relationship Specialty Start Date End Date Millie Cain CNP [address] [place] [phone] PCP - General 09/04/17 documented as of this encounter Additional Source Comments The information contained in this document represents components of the legal health record. It is not the complete legal health record.[facility]
[2025-06-04 08:41] LABS: MANUAL DIFF FLAG NO
[2025-06-04 09:20] LABS: Hematocrit 36.4 % (37.0-47.0); Hemoglobin 12.8 g/dl (12.0-16.0); Imm Gran Abs Auto 0.01 X10*3/uL (0.00-0.03); Imm Gran Pct Auto 0.2 % (0.0-0.4); Lymphocytes Absolute Auto 1.2 X10*3/uL (1.2-4.9); Mean Corpuscular HGB Conc 35.2 g/dl (31.0-35.0); Mean Corpuscular Hemoglobin 31.1 pg (27.0-33.0); Mean Corpuscular Volume 88.3 fL (80.0-98.0); NRBC Abs Auto 0.000 X10*3/uL (0.0-0.012); NRBC Pct Auto 0.0 /100WBC (0.0-0.2); Platelet Count 279 X10*3/uL (160-400); Red Blood Count 4.12 X10*6/uL (4.20-5.50); White Blood Count 6.0 X10*3/uL (4.8-10.8)
[2025-06-04 10:12] LABS: Alanine Aminotransferase 15 U/L (0-31); Albumin Level 4.2 g/dL (3.5-5.0); Alkaline Phosphatase 66 U/L (39-117); Anion Gap 11 (12-20); Aspartate Amino Transferase 17 U/L (5-31); Blood Urea Nitrogen 17 mg/dL (9-16); Calcium 9.4 mg/dL (8.4-10.2); Carbon Dioxide 26 mmol/L (22-29); Chloride 106 mmol/L (96-108); Estimated Glomerular Filt Rate > 60; Potassium 4.0 mmol/L (3.3-5.1); Sodium 139 mmol/L (135-145); Total Protein 7.6 g/dL (6.5-8.0)
== END 2025-06-04 08:22 | disposition home or self-care (01) ==
LOC: HO.LAB 08:21
PROVIDERS: Visit Provider Student in an Organized Health Care Education/Training Program
DX: M06.9 Rheumatoid arthritis, unspecified (principal)
CPT/HCPCS: 36415; 80053; 85025; 85652; 86140

== ENCOUNTER 2025-06-07 07:58 | Outpatient (AMB) | payer BC, SELFPAY ==
--- OUTSIDE RECORDS SUMMARY | 2025-06-07 08:09 | XMS_ITS | Encounter Summary ---
Author Organization [facility] Address [address] [facility] [address] [place] [phone] Phone Care Team Providers Care Collar Worker Name Role Phone Millie Cain CNP Primary Care Provide r Encounter Details Date Type Department Care Team (Late st Contact Info) Description 04/02/2024 Procedure Pass [facility], [address] [phone] Social History Tobacco Use Types Packs/Day Years [...] high school, GED, job training, learning the Monegasque language, technical skills, or developing parenting skills)? [...] housing situation today? I have jacquelyn sing 07/23/2023 How many times have you move [...] PM EDT PHQ-2 Depression Total Score: 0 07/20/20 24 12:27 PM EST documented as of this encounter Care Teams Collar Worker Relationship Specialty Start Date End Date Millie Cian CNP [address] [place] [phone] [email or web address] PCP - General 09/04/17 documented as of this encounter Additional Source Comments The information contained in this document represents components of the legal health record. It is not the complete legal health record.[facility]
--- OUTSIDE RECORDS SUMMARY | 2025-06-07 08:10 | XMS_ITS | Encounter Summary ---
Author Organization [facility] Address [address] [facility] [place] [address] Phone Care Team Providers Care Plane Captain Name Role Phone Millie Cain CNP Primary Care Provide r Encounter Details Date Type Department Care Team (Late st Contact Info) Description 03/26/2022 Transcribe Orders Virtual Department 30 [place] [address] Isaiah Sharp, 29 [facility] [place] [address] Encounter for screening mammogram for malignant neoplasm [...] high school, GED, job training, learning the Israeli language, technical skills, or developing parenting skills)? [...] documented as of this encounter Care Teams Plane Captain Relationship Specialty Start Date End Date Millie Cain CNP [address] [place] [phone] [email or web address] PCP - General 09/04/17 documented as of this encounter Additional Source Comments The information contained in this document represents components of the legal health record. It is not the complete legal health record.[facility]
--- OUTSIDE RECORDS SUMMARY | 2025-06-07 08:10 | XMS_ITS | Encounter Summary ---
Author Organization [facility] Address [address] [place] [address] Drive [address] [place] [address] Phone Care Team Providers Care Beekeeper Name Role Phone Millie Cain CNP Primary Care Provide r Encounter Details Date Type Department Care Team (Late st Contact Info) Description 04/02/2024 Transcribe Orders Virtual Department 30 [place] [address] Isaiah Sharp, 29 [facility] [place] [address] [email or web address] Breast screening (Primary Dx) Social History Tobacco [...] high school, GED, job training, learning the Spanish language, technical skills, or developing parenting skills)? [...] documented as of this encounter Care Teams Beekeeper Relationship Specialty Start Date End Date Millie Cain CNP [address] [place] [phone] [email or web address] PCP - General 09/04/17 documented as of this encounter Additional Source Comments The information contained in this document represents components of the legal health record. It is not the complete legal health record.[facility]
--- OUTSIDE RECORDS SUMMARY | 2025-06-07 08:10 | XMS_ITS | Encounter Summary ---
Author Organization [facility] Address [address] [place] [address] Phone Care Team Providers Care Peoplesoft Developer Name Role Phone Millie Cain CNP Primary Care Provide r Encounter Details Date Type Department Care Team (Late st Contact Info) Description 03/26/2022 Procedure Pass [facility], [address] [phone] Social History Tobacco Use Types Packs/Day Years [...] high school, GED, job training, learning the Sri Lankan language, technical skills, or developing parenting skills)? [...] documented as of this encounter Care Teams Peoplesoft Developer Relationship Specialty Start Date End Date Millie Cain CNP [address] [place] [phone] [email or web address] PCP - General 09/04/17 documented as of this encounter Additional Source Comments The information contained in this document represents components of the legal health record. It is not the complete legal health record.[facility]
--- OUTSIDE RECORDS SUMMARY | 2025-06-07 08:10 | XMS_ITS | Encounter Summary ---
Author Organization [facility] Address [address] [place] [address] [place], [place] [phone] Phone Care Team Providers Care Flat Folding Machine Operator Name Role Phone Millie Cain CNP Primary Care Provide r Encounter Details Date Type Department Care Team (Late st Contact Info) Description 10/06/2020 Transcribe Orders [facility] 29 [place] [address] Millie Cain CNP [address] [place] [phone] [email or web address] Social History Tobacco Use Types Packs/Day Years [...] documented as of this encounter Care Teams Flat Folding Machine Operator Relationship Specialty Start Date End Date Millie Cain CNP [address] [place] [phone] PCP - General 09/04/17 documented as of this encounter Additional Source Comments The information contained in this document represents components of the legal health record. It is not the complete legal health record.[facility]
--- OUTSIDE RECORDS SUMMARY | 2025-06-07 08:10 | XMS_ITS | Encounter Summary ---
Author Organization [facility] Address [address] [facility] [address] [place] [address] Phone Care Team Providers Care Washer Operator Name Role Phone Millie Cain CNP Primary Care Provide r Encounter Details Date Type Department Care Team (Late st Contact Info) Description 04/22/2023 Procedure Pass [facility], [address] [phone] Social History Tobacco Use Types Packs/Day Years [...] high school, GED, job training, learning the Beninese language, technical skills, or developing parenting skills)? [...] documented as of this encounter Care Teams Washer Operator Relationship Specialty Start Date End Date Millie Cain CNP [address] [place] [phone] [email or web address] PCP - General 09/04/17 documented as of this encounter Additional Source Comments The information contained in this document represents components of the legal health record. It is not the complete legal health record.[facility]
--- OUTSIDE RECORDS SUMMARY | 2025-06-07 08:10 | XMS_ITS | Encounter Summary ---
Author Organization [facility] Address [address] [place] [address] [place], [place] [phone] Phone Care Team Providers Care Russian Teacher Name Role Phone Millie Cain CNP Primary Care Provide r Encounter Details Date Type Department Care Team (Late st Contact Info) Description 12/03/2017 Transcribe Orders [facility] 29 [place] [address] Millie Cain CNP [address] [place] [address] Social History Tobacco Use Types Packs/Day Years [...] on filedocumented in this encounter Care Teams Russian Teacher Relationship Specialty Start Date End Date Millie Cain CNP 29 [place] [address] PCP - General 09/04/17 documented as of this encounter Additional Source Comments The information contained in this document represents components of the legal health record. It is not the complete legal health record.[facility]
--- OUTSIDE RECORDS SUMMARY | 2025-06-07 08:11 | XMS_ITS | Encounter Summary ---
Author Organization [facility] Address [address] [place] [address] Drive [address] [place] [phone] Phone Care Team Providers Care Computer Aided Design Designer Name Role Phone Millie Cain CNP Primary Care Provide r Encounter Details Date Type Department Care Team (Late st Contact Info) Description 03/07/2021 Procedure Pass [facility], [address] [address] Social History Tobacco Use Types Packs/Day Years [...] documented as of this encounter Care Teams Computer Aided Design Designer Relationship Specialty Start Date End Date Millie Cain CNP [address] [facility] [place] [address] PCP - General 09/04/17 documented as of this encounter Additional Source Comments The information contained in this document represents components of the legal health record. It is not the complete legal health record.[facility]
--- OUTSIDE RECORDS SUMMARY | 2025-06-07 08:11 | XMS_ITS | Encounter Summary ---
Author Organization [facility] Address [address] [place] [address] [place], [place] [phone] Phone Care Team Providers Care Data Lead Name Role Phone Millie Cain CNP Primary Care Provide r Encounter Details Date Type Department Care Team (Late st Contact Info) Description 09/30/2017 Ancillary Orders [address] [address] Isaiah Sharp, 29 [place] [address] Breast screening Social History Tobacco Use Types [...] architectural distortion or suspicious microcalcifications. Procedure Note Ravi Keenan MD - 10/30/2017 Bilateral mammography is [...] unspecified documented in this encounter Care Teams Data Lead Relationship Specialty Start Date End Date Millie Cain CNP [address] [place] [phone] PCP - General 09/04/17 documented as of this encounter Additional Source Comments The information contained in this document represents components of the legal health record. It is not the complete legal health record.[facility]
--- OUTSIDE RECORDS SUMMARY | 2025-06-07 08:11 | XMS_ITS | Encounter Summary ---
Author Organization [facility] Address [address] [place] [address] [place], [place] [phone] Phone Care Team Providers Care Film Processor Name Role Phone Millie Cain CNP Primary Care Provide r Encounter Details Date Type Department Care Team (Late st Contact Info) Description 12/24/2018 Transcribe Orders [facility] 29 [place] [address] Millie Cain CNP 29 [place] [address] Social History Tobacco Use Types Packs/Day Years [...] documented as of this encounter Care Teams Film Processor Relationship Specialty Start Date End Date Millie Cain CNP [address] [place] [phone] [email or web address] PCP - General 09/04/17 documented as of this encounter Additional Source Comments The information contained in this document represents components of the legal health record. It is not the complete legal health record.[facility]
--- OUTSIDE RECORDS SUMMARY | 2025-06-07 08:11 | XMS_ITS | Encounter Summary ---
Author Organization [facility] Address [address] [place] [address] [place], [place] [phone] Phone Care Team Providers Care Utility Mechanic Name Role Phone Millie Cain CNP Primary Care Provide r Encounter Details Date Type Department Care Team (Late st Contact Info) Description 03/07/2021 Ancillary Orders [address] [address] Isaiah Sharp, DO 29 [place] [address] Breast screening Social History Tobacco Use Types [...] documented as of this encounter Care Teams Utility Mechanic Relationship Specialty Start Date End Date Millie Cain CNP [address] [place] [phone] (work) [email or web address] PCP - General 09/04/17 documented as of this encounter Additional Source Comments The information contained in this document represents components of the legal health record. It is not the complete legal health record.[facility]
--- OUTSIDE RECORDS SUMMARY | 2025-06-07 08:11 | XMS_ITS | Encounter Summary ---
Author Organization [facility] Address [address] [place] [address] [place], [place] [phone] Phone Care Team Providers Care Director Of Retail Marketing Name Role Phone Millie Cain CNP Primary Care Provide r Encounter Details Date Type Department Care Team (Late st Contact Info) Description 06/28/2020 Transcribe Orders [facility] [address] [place] [address] Millie Cain CNP 29 [place] [address] [email or web address] Social History Tobacco Use Types Packs/Day Years [...] documented as of this encounter Care Teams Director Of Retail Marketing Relationship Specialty Start Date End Date Millie Cain CNP [address] [place] [phone] PCP - General 09/04/17 documented as of this encounter Additional Source Comments The information contained in this document represents components of the legal health record. It is not the complete legal health record.[facility]
--- OUTSIDE RECORDS SUMMARY | 2025-06-07 08:11 | XMS_ITS | Encounter Summary ---
Author Organization [facility] Address [address] [place] [address] [place], [place] [phone] Phone Care Team Providers Care Rail Maintenance Worker Name Role Phone Millie Cain CNP Primary Care Provide r Encounter Details Date Type Department Care Team (Late st Contact Info) Description 09/18/2018 Ancillary Orders [address] [address] Isaiah Sharp, 29 [place] [address] Breast screening Social History Tobacco Use Types [...] Images interpreted in conjunction with R-2 Image Defensive Fire Control Systems Operator computer-aided detection (CAD). FINDINGS: BREAST DENSITY: The [...] unspecified documented in this encounter Care Teams Rail Maintenance Worker Relationship Specialty Start Date End Date Millie Cain CNP [address] [place] [phone] (work) [email or web address] PCP - General 09/04/17 documented as of this encounter Additional Source Comments The information contained in this document represents components of the legal health record. It is not the complete legal health record.[facility]
--- OUTSIDE RECORDS SUMMARY | 2025-06-07 08:11 | XMS_ITS | Clinical Summary ---
Author Organization [facility] Address [address] [place] [phone] Phone Care Team Providers Care Sock Knitter Name Role Phone Millie Cain CNP Primary Care Provide r Allergies No known active allergies Medications adalimumab (HUMIRA) 40 mg/0.8 mL syringe kit 40 mg every 14 (fourteen) days. Active ferrous sulfate 325 mg (65 mg [place] iron) tablet 1 tablet Active Bacillus coagulans [...] watery eyes, she has appt to see retail pos specialist Hidradenitis suppurativa 07/23/2023 Assessment & Plan [...] Rheumatoid arthritis 10/15/2017 Overview (11/13/2022): Established with [facility] rheumatology 10/[address] robles Assessment & Plan (07/26/2024 9:45 AM EST): Stable on Humira under the care of [facility] rheumatology. Moving slow today knees most bothersome at present, some OA. Pt would benefit from weight loss and offloading these joints Assessment & Plan (07/23/2023 1:29 PM EST): Under the care of [facility] rheumatology, stable with the Humira Assessment & Plan (07/18/2022 3:43 PM EST): Under the care of Dr Robles who unfortunately is moving she will establish with new dexigraph operator, she is looking at [facility]. Stable on Humira. Offloading joints by weight [...] EDT): Under the care of gastro in [place], stable on Humira and every two year [...] high school, GED, job training, learning the Slovenian language, technical skills, or developing parenting skills)? [...] COLONOSCOPY 02/14/2009 RSV VACCINE (1 - Risk 50-74 years 1-dose series) 02/14/2014 INFLUENZA VACCINE (#1) 2025 , 06/07/2023, 06/30/2022, Additional history exists COVID-19 VACCINE (2024- season) 2025 05/16/2024, 06/07/2023, 07/19/2022, Additional history [...] EST) TSH 2.01 0.27 - 4.20 uIU/mL [facility] Blood 08/30/2024 8:21 AM EST 08/30/2024 8:25 AM EST Millie Cain CNP LAB BLOOD ORDERABLES Final Result [facility] [address] [place] [address] * (ABNORMAL) Lipid panel (08/30/2024 8:21 AM EST) HDL 37 mg/dL [facility] Comment: Interpretation <40 mg/dL: Low HDL cholesterol (major risk factor for CHD) Greater than or equal to 60 mg/dL: High HDL cholesterol ( negative risk factor for CHD) HDL - cholesterol is affected by a number of factors, e.g. smoking, excerise, hormones, sex and age. CHOLESTEROL 193 0 - 240 mg/dL [facility] TRIGLYCERIDES 235(H) 30 - 160 mg/dL [facility] LDL 109 50 - 129 mg/dL [facility] Comment: LDL levels in terms of risk for coronary heart disease: <100 mg/dL: Optimal 100-129 mg/dL: Near or above optimal 130-159 mg/dL: Borderline high 160-189 mg/dL: High >190 mg/dL: Very High CARDIAC RISK RATIO 5.2(H) 3.3 - 4.4 C [facility] Blood 08/30/2024 8:21 AM EST 08/30/2024 8:25 AM EST Millie Cain CANE FLUME WATCHER LAB BLOOD ORDERABLES Final Result [address] [address] * BI MAMMOGRAM SCREENING WITH TOMOSYNTHESIS WITH [...] DO IMG MG EXAMS Final Result * COLONOSCOPY FOR RESULT ENTRY ONLY (10/30/2023 12:19 PM EST) us Historical Provider [facility] Final Result * (ABNORMAL) Pap Smear (07/18/2022 12:00 AM EST) 07/18/2022 07/19/2022 10: 07 AM EST Narrative SEE NARRATIVE - 07/24/2022 8:47 AM EST [address] [address] Milieu Technician: Reshma Silverio MD GAMING FLOOR SUPERVISOR Cytology Report FINAL DIAGNOSIS A. PAP SMEAR [...] 52, 56, 58, 59, 66, 68) by Valentine [employer] Onclarity HR-HPV analysis. Clinical correlation is advised. This HPV test was performed at [facility], [address] [place] [address]. This test has been FDA approved for [facility] cervical cytology specimens. The accuracy and precision of this test for all other specimen sources has been verified in the Cytopathology Laboratory of the [facility] and has not been cleared or approved by the U.S. Food and Drug Administration. Clinical correlation is advised. CLINICAL HISTORY Date of Last Menstrual Period: Not Provided Menstrual History: Post Menopausal Other Clinical Conditions: Screening Pap SPECIMEN SOURCE A: PAP SMEAR (SUREPATH) CE Patient Name: EDWARDO WILLIAMSON : 1965 (Age: 57) Sex: F Institution: [facility] Location: [facility] Date of Collection: 07/18/2022 Date of Reported: 07/24/2022 08:47 Results to: Millie Cain FENCE BUILDER us Millie Cain CANE FLUME WATCHER CYTOLOGY ORDERABLES F inal Result SEE NARRATIVE * Outside Hepatitis C Virus Screening (01/08/2005) Hepatitis C Screening - External Neg (patient reported) Historical Provider LAB BLOOD ORDERABLES Cynthia l Result * OUTSIDE HIV TEST (01/08/2005) HIV - External Neg (patient reported) Historical Provider MD LAB BLOOD ORDERABLES Cynthia l Result from Last 3 Months or Most Recently Relevant to Health Maintenance Insurance [facility] PPO [facility] OUT STATE PPO [place] [place] OUT OF STATE PPO [place] [place] OUT OF STATE PPO [place] OUT OF STATE PPO [place]UE [place] OUT OF STATE PPO [employer] Care Teams Sock Knitter Relationship Specialty Start Date End Date Millie Cain CNP [address] [place] [address] [place] [address] PCP - General 09/04/17 Additional Source Comments The information contained in this document represents components of the legal health record. It is not the complete legal health record.[facility]
--- OUTSIDE RECORDS SUMMARY | 2025-06-07 08:11 | XMS_ITS | Encounter Summary ---
Author Organization [facility] Address [address] [place] [address] [place], [place] [id number] Phone Care Team Providers Care Marketing Automation Manager Name Role Phone Millie Cain CNP Primary Care Provide r Encounter Details Date Type Department Care Team (Late st Contact Info) Description 10/17/2017 Transcribe Orders [facility] [address] [place] [address] Millie Cain CNP [address] [place] [address] [email or web address] Social History Tobacco Use Types Packs/Day Years [...] on filedocumented in this encounter Care Teams Marketing Automation Manager Relationship Specialty Start Date End Date Millie Cain CNP [address] [place] [address] [email or web address] PCP - General 09/04/17 documented as of this encounter Additional Source Comments The information contained in this document represents components of the legal health record. It is not the complete legal health record.[facility]
--- OUTSIDE RECORDS SUMMARY | 2025-06-07 08:12 | XMS_ITS | Encounter Summary ---
Author Organization [facility] Address [address] [place] [address] [place], [place] [phone] Phone Care Team Providers Care Psychometrist Name Role Phone Millie Cain CNP Primary Care Provide r Encounter Details Date Type Department Care Team (Late st Contact Info) Description 02/28/2020 Ancillary Orders [address] [address] Isaiah Sharp, DO [address] [place] [address] Breast screening Social History Tobacco Use Types [...] There are scattered fibroglandular densities. POS - [id number] Narrative 03/07/2020 7:13 PM EDT STUDY: Bilateral [...] There are scattered fibroglandular densities. POS - [id number] Isaiah Sharp DO IMG MG EXAMS Final Result documented in this encounter Visit Diagnoses Diagnosis Breast screening Breast screening, unspecified Breast screening Breast screening, unspecified documented in this encounter Additional Health Concerns Assessment Noted Time PHQ-2 Depression Total Score: 0 12/24/19 19 3:25 PM EDT documented as of this encounter Care Teams Psychometrist Relationship Specialty Start Date End Date Millie Cain CNP [address] [place] [phone] PCP - General 1/4/18 documented as of this encounter Additional Source Comments The information contained in this document represents components of the legal health record. It is not the complete legal health record.[facility]
--- OUTSIDE RECORDS SUMMARY | 2025-06-07 08:12 | XMS_ITS | Encounter Summary ---
Author Organization [facility] Address [address] [place] [address] [place], [place] [phone] Phone Care Team Providers Care Customer Acquisition Specialist Name Role Phone Millie Cain CNP Primary Care Provide r Encounter Details Date Type Department Care Team (Late st Contact Info) Description 05/04/2020 Transcribe Orders [facility] [address] [place] [address] Millie Cain CNP [address] [place] [phone] Social History Tobacco Use Types Packs/Day Years [...] documented as of this encounter Care Teams Customer Acquisition Specialist Relationship Specialty Start Date End Date Millie Cain CNP [address] [place] [phone] PCP - General 09/04/17 documented as of this encounter Additional Source Comments The information contained in this document represents components of the legal health record. It is not the complete legal health record.[facility]
--- NOTE | 2025-06-07 08:23 | A.OFFVIS_ITS ---
Vital Signs 06/07/25 08:29 Height 5 ft Weight 228 lb 9.91 oz BMI 44.6 BP 134/92 H Blood Pressure Location Lt brachial Position Sitting Pulse 50 Pulse Source Pulse Oximeter Pulse Oximetry (%) 98 Oxygen Delivery Method Room Air Intake Visit Reasons: Follow up RA Intake Note: Patient presents for RA follow up. Allergies Seasonal Allergies Allergy (Verified 06/07/25 08:28) Itchy Eyes Medication List - Last Reconciled 06/07/25 by Autumn Hartley MD ferrous sulfate 325 mg PO DAILY hydrochlorothiazide 12.5 mg PO DAILY Hyrimoz(CF) Pen (adalimumab-adaz) 40 mg (0.4 mL) subcut QWEEK NS lactobacillus combination no.9 (Adult 50 Plus Probiotic) 4,000 mmu cells PO DAILY levothyroxine 150 mcg PO DAILY HPI Comments Details: Patient is a 60-year-old female with ulcerative colitis, seropositive nodular rheumatoid arthritis and hypothyroidism here today for follow up Interval History: Last seen 01/20/2025 with me. - Adalimumab-adaz 40mg SC every 7 days - Patient is doing much better, tolerating the increased frequency - Still has some mild flares but much better Today - Adalimumab-adaz 40mg SC every 7 days - Continues to do well - Started chair yoga, tries to do it 6 days a week for 20 mins at a time - No new concerns or complaints Rheumatologic History: +RF++CCP. Onset per patient in her 20s Per patient Had been on SSZ, MTX, anakinra for a number of years each with incomplete response On Humira for more than 13 years . Effective. Switched to Hyrimoz 12/2023 effective as well Initial history: This is a 57-year-old female with a past medical history of rheumatoid arthritis and osteoarthritis who presents for rheumatology evaluation. Her previous shellac polisher left the practice. Patient stated she was diagnosed with rheumatoid arthritis around 35 years ago in her 30s and she had been on numerous DMARDs. She states that she is currently relatively well controlled on Humira. She states she gets alternating joint pain depending on the joint she overused. Today she is having some right shoulder pain after shoveling snow yesterday and falling on her right shoulder. She states that she feels joint pain and swelling coming back if she misses her Humira dose. She stated that she was diagnosed with ulcerative colitis 13 years ago and had already been on Humira. She denies any skin rash. No history suggestive of uveitis or psoriasis. Current Rheumatology Medication(s): Adalimumab-adaz 40mg SC every 7 days [facility] Medical History (Updated 06/07/25 @ 08:51 by Autumn Hartley MD) Encounter for monitoring of adalimumab therapy [place] on CPAP Obesity Rheumatoid arthritis Acquired hypothyroidism Ulcerative colitis Iron deficiency anemia Surgical History Hx of colonoscopy Hx of mammogram Family History Mother Arthritis Sister Breast cancer, Onset Age: 40 Paternal Aunt Breast cancer, Onset Age: 60 Rheumatoid arthritis Maternal Grandmother Leukemia Social History Household Members: None Alcohol intake: current Alcohol intake frequency: a few times a week Patient Tobacco Use Status: Never used Tobacco Current occupational status: employed 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[employer] Review of Systems Const Details: Review of Systems Constitutional: Denies fever, chills, weight loss ENT: Denies vision changes, eye pain or eye redness, dental caries, dry mouth GI: Denies nausea, vomiting, diarrhea, abdominal pain, change in BM Pulm: Denies SOB, FRITZ, hemoptysis, wheezing Cards: Denies chest pain, palpitations Skin: Denies Raynaud's, rash, nail changes, photosensitivity, STATE APPELLATE CLERK: Denies headaches, weakness, paresthesias, recurrent falls MSK: as per HPI All other systems reviewed and are unremarkable except noted above Physical Exam Exam Exam: Vital signs reviewed Physical Examination CONSTITUITIONAL Patient alert and cooperative. Well appearing and in no apparent painful distress MSK Hands * Right Hand: Able to make a fist. No swelling or tenderness to palpation of the MCPs, PIPs or DIPs. 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 No swelling or tenderness to palpation of the MCPs, PIPs or DIPs. Boutonierre's deformity noted to the 2nd and 3rd digit * Herbedens nodes noted bilaterally * Squarring of the 1st CMC bilaterally Wrists * Right Wrist: Full ROM to flexion and extension. No swelling or TTP * Left Wrist: Full ROM to flexion and extension. No swelling or TTP Elbows * Right Elbow: Full ROM. No swelling or TTP. No TTP of the medial epicondyle. No TTP of the lateral epicondyle * Left Elbow: Full ROM. No swelling or TTP. No TTP of the medial epicondyle. No TTP of the lateral epicondyle Shoulders * Right shoulder: Full ROM. No swelling noted. No TTP of the AC joint. No TTP of the subacromial bursa. No TTP of the posterior shoulder * Left shoulder: Decreased ROM. No swelling noted. No TTP of the AC joint. No TTP of the subacromial bursa. No TTP of the posterior shoulder Hip bursa: No tenderness to palpation bilaterally Knees * Right knee: Full ROM. No swelling noted. No TTP of the knee joint line. No TTP of pes anserine bursa * Left knee: Full ROM. No swelling noted. No TTP of the knee joint line. No TTP of pes anserine bursa. * Crepitations felt bilaterally Ankles * Right ankle: Good ankle dorsiflexion and plantar flexion. No swelling. No TTP of the ankle joint * Left ankle: Good ankle dorsiflexion and plantar flexion. No swelling. No TTP of the ankle joint Feet * Right foot: Negative squeeze test * Left foot: Negative squeeze test Tender points? * No tenderness to palpation of the bilateral trapezius, supraspinatus, anterior costochondral junctions, bilateral suboccipital muscle insertions SKIN No rashes Vital Signs: Last Vital Signs Pulse 50 06/07/25 08:29 BP 134/92 H 06/07/25 08:29 Pulse Ox 98 06/07/25 08:29 Oxygen Delivery Method Room Air 06/07/25 08:29 BMI result Body Mass Index 44.6 Results Reviewed Results Reviewed: Laboratory Tests 10/13/24 01/15/25 06/04/25 10:31 08:34 08:40 WBC 6.0 RBC 4.12 L Hgb 12.8 Hct 36.4 L Plt Count 279 ESR 21 H Sodium 139 Potassium 4.0 Chloride 106 Carbon Dioxide 26 BUN 17 H Creatinine 0.74 AST 17 ALT 15 C-Reactive Protein 6.71 H 0.54 H 0.36 Laboratory Tests 10/13/24 10:31 Hepatitis A IgM Ab Nonreactive Hep Bs Antigen Negative Hep Bs Antibody NONREACTIVE Hep B Core Total Ab Nonreactive Hepatitis C Ab (EIA) Nonreactive TB Test (T-Spot) Com Negative Assessment & Plan Assessment & Plan (1) Rheumatoid arthritis: Comment: +RF++CCP. Onset per patient in her 20s Per patient Had been on SSZ, MTX, anakinra for a number of years each with incomplete response On Humira for more than 13 years . Effective. Switched to Hyrimoz 12/2023 effective as well Advanced to weekly 11/2024 Code(s): M06.9 - Rheumatoid arthritis, unspecified Category: Medical Qualifiers: Rheumatoid arthritis location: multiple sites Rheumatoid factor presence: unspecified presence Qualified Code(s): M06.9 - Rheumatoid arthritis, unspecified Plan: #Seropositive nodular RA Patient is a 60-year-old female with seropositive nodular rheumatoid arthritis on Humira biosimilar. Doing much better on weekly Humira. Inflammatory markers drastically improved as well. We will continue this regimen. Recommended regular yoga for stretching. Plan - Adalimumab adaz 40mg SC every 7 days - RTC 6 months - Labs before visit: CBC, CMP, ESR, CRP (2) Encounter for monitoring of adalimumab therapy: Code(s): Z51.81 - Encounter for therapeutic drug level monitoring; Z79.620 - termite treater (current) use of immunosuppressive biologic Category: Medical Plan: #Long-term Use of TNF Inhibitors: Humira biosimilar Discussed with the patient the benefits and risks of TNF inhibitors for the management of the rheumatic condition Benefits include reduce pain, maintenance of remission and reduction of flares as well as ?progression of the disease Risks include injection sites/infusion reactions, serious infections (such as bacterial infections, opportunistic infections), malignancy, delaminating syndromes, autoimmune phenomena, CHF exacerbations, palmar plantar psoriasis and cytopenias Recommended rotating injection sites, and holding medication during and for up to 1 week after resolution of a febrile illness or open skin wound Plan I spent 25 minutes reviewing the record and labs, taking a history, examining the patient, discussing the treatment plan and documenting in the medical record Orders: Orders Complete Blood Count Auto Diff 6 Months Z79.899 - Other superintendent marine oil terminal (current) drug therapy C Reactive Protein 6 Months Z79.899 - Other superintendent [employer] oil [employer] (current) drug therapy Erythrocyte Sedimentation Rate 6 Months Z79.899 - Other superintendent marine oil terminal (current) drug therapy T Spot TB 6 Months Z79.899 - Other superintendent marine oil terminal (current) drug therapy Comprehensive Met. Panel 6 Months Z79.899 - Other group home (current) drug therapy Hepatitis B,C Profile 6 Months Z79.899 - Other group home (current) drug therapy Medications: Refilled Hyrimoz(CF) Pen (adalimumab-adaz) 40 mg (0.4 mL) subcut QWEEK 1.6 mL 5RF NS M06.9 - Rheumatoid arthritis, unspecified Coding Level of Care Code Est Pt Level 3 (43861) Complex EM visit Add On G2211 Diagnoses Rheumatoid arthritis involving multiple sites, unspecified whether rheumatoid factor present M06.9 Rheumatoid arthritis location: multiple sites Rheumatoid factor presence: unspecified presence Encounter for monitoring of adalimumab therapy Z51.81; Z79.456
[2025-06-07 08:29] VITALS: BP 134/92; PULSE 50; O2SAT 98; BMI 44.6
== END 2025-06-07 08:55 | disposition home or self-care (01) ==
LOC: HO.RHES 07:58
PROVIDERS: PCP Family Medicine; Visit Provider Student in an Organized Health Care Education/Training Program
DX: M06.9 Rheumatoid arthritis, unspecified (principal); Z51.81 Encounter for therapeutic drug level monitoring; Z79.620 Long term (current) use of immunosuppressive biologic
CPT/HCPCS: 99213